=== PATIENT | female | born 1945 | race Caucasian/White ===

== ENCOUNTER 2017-11-04 06:40 | Observation (INO) | payer MEDICARE, OTHER ==
[~2017-11-04 06:40] MED LIST: Sodium Chloride 0.9% 10 ML Syringe FLUSH PRN; Sodium Chloride 0.9% 2.5 ML Syringe FLUSH PRN; ceFAZolin 2 GM in Premix Bag 1 BAG IV ONE
[2017-11-04] MEDS: Lactated Ringers 1,000 ML IV SCH ×2 (07:14→16:16)
[2017-11-04] MEDS ORDERED: Bupivacaine 0.5% 30 ML SDV ONE (07:26)
[2017-11-04] MEDS ORDERED: Lidocaine 2% 5 ML SDV ONE (07:32)
[2017-11-04] MEDS ORDERED: Propofol 200 MG/20 ML SDV ONE (07:32)
[2017-11-04] MEDS ORDERED: Midazolam 1 MG/ML 2 ML SDV ONE ×2 (07:32→07:37)
[2017-11-04] MEDS ORDERED: fentaNYL 100 MCG/2 ML SDV ONE (07:32)
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
[2017-11-04] MEDS ORDERED: Succinylcholine/Normal Saline 200 MG/10 ML Syringe ONE (07:35)
[2017-11-04] MEDS ORDERED: Ketorolac 30 MG/ML SDV ONE (07:35)
[2017-11-04] MEDS ORDERED: Ondansetron 4 MG/2 ML SDV ONE (07:35)
[2017-11-04] MEDS ORDERED: Rocuronium 10 MG/ML 10 ML Syringe ONE (07:35)
[2017-11-04] MEDS ORDERED: HYDROmorphone 2 MG/ML SDV ONE (07:38)
[2017-11-04] MEDS ORDERED: fentaNYL 100 MCG/2 ML SDV IVPUSH PRN (08:36)
[2017-11-04] MEDS ORDERED: HYDROmorphone 2 MG/ML Syringe IVPUSH ONE (08:36)
[2017-11-04] MEDS ORDERED: Dexamethasone 4 MG/ML 5 ML MDV ONE (09:03)
[2017-11-04] MEDS ORDERED: Sugammadex Sodium 200 MG/2 ML VIAL ONE (09:17)
[2017-11-04] MEDS ORDERED: oxyCODONE 5 MG Tab PO PRN (09:50)
--- NOTE | 2017-11-04 09:58 | PCM.OPNOTE ---
- General Post-Op/Procedure Note Date of Surgery/Procedure: 11/04/17 Operative Procedure(s): Laparoscopic cholecystectomy Findings: Mildly inflamed gallbladder Pre Op Diagnosis: Symptomatic cholelithiasis Post-Op Diagnosis: same Anesthesia Technique: MAC Primary Surgeon: Marilyn Vee Fluid Replacement, Intraop: 1,800 Output, Urine Amount: 125 EBL in mLs: 20 Condition: Good Free Text/Narrative:: Intake & Output 11/03/17 11/04/17 11/04/17 22:59 06:59 14:59 Output Total 125 Balance -125
[2017-11-04] MEDS ORDERED: ePHEDrine 50 MG/ML SDV ONE (10:35)
[2017-11-04] MEDS ORDERED: Phenylephrine/Normal Saline 100 MCG/ML 10 ML Syringe ONE (10:39)
--- NOTE | 2017-11-04 11:34 | PCM.POSTAN ---
POST ANESTHESIA ASSESSMENT - MENTAL STATUS Mental Status: Alert, Oriented - RESPIRATORY Respiratory Status: Respiratory Rate WNL, Airway Patent, O2 Saturation Stable - CARDIOVASCULAR CV Status: Pulse Rate WNL, Blood Pressure Stable - GASTROINTESTINAL GI Status: No Symptoms - POST OP HYDRATION Hydration Status: Adequate & Stable
[2017-11-04] MEDS ORDERED: HYDROmorphone 2 MG/ML Syringe IVPUSH PRN (11:49)
[2017-11-04] MEDS ORDERED: Scopolamine 1.5 MG Transdermal Patch TRDERM PRN (11:49)
[2017-11-04] MEDS ORDERED: Ondansetron 4 MG/2 ML SDV IVPUSH PRN (11:49)
[2017-11-04] MEDS ORDERED: Promethazine 25 MG/ML SDV IM PRN (11:50)
[2017-11-04] MEDS: HYDROmorphone 1 MG/ML Syringe IVPUSH PRN ×2 (12:38→16:33)
[2017-11-04] MEDS ORDERED: Metoclopramide 10 MG/2 ML SDV IV PRN (13:00)
[2017-11-04] MEDS ORDERED: diphenhydrAMINE 50 MG/ML SDV IVPUSH PRN (13:00)
[2017-11-04] MEDS ORDERED: HYDROmorphone 1 MG/ML Syringe IVPUSH PRN (13:00)
--- NOTE | 2017-11-04 13:00 | PCM.SN ---
- Free Text/Narrative Note: Patient is vomiting and having pain. When she gets pain medicine she becomes extremely lethargic. When she wakes up she then has nausea and subsequent vomiting. Will keep her NPO other than ice chips and sips of meds. Will continue IV fluids. Will write for anti-emetics and pain medications.
[2017-11-04] MEDS: Pantoprazole 40 MG Vial IVPUSH SCH (16:37)
--- NOTE | 2017-11-04 17:16 | PCM.SURGPN ---
- General Info Date of Service: 11/04/17 Date of Surgery/Procedure: 11/04/17 POD#: 0 Post-Op Diagnosis: Symptomatic cholelithiasis Functional Status: Reports: Pain Controlled, Other (Patient very weak from nausea and vomiting today. Pain appears to be controlled. She wakes and answers a few questions before falling back asleep. ) - Review of Systems General: Reports: Weakness, Fatigue Pulmonary: Reports: No Symptoms Cardiovascular: Reports: No Symptoms Gastrointestinal: Reports: Nausea, Vomiting - Patient Data Vitals - Most Recent: Last Vital Signs Temp 36.4 C 11/04/17 11:13 Pulse 84 11/04/17 15:15 Resp 16 11/04/17 15:15 BP 144/66 H 11/04/17 15:15 Pulse Ox 97 11/04/17 15:15 Weight - Most Recent: 48.534 kg I&O - Last 24 Hours: Intake & Output 11/04/17 11/04/17 11/04/17 06:59 14:59 22:59 Intake Total 3700 Output Total 250 Balance 3450 Med Orders - Current: Current Medications Diphenhydramine HCl (Benadryl) 25 mg IVPUSH Q4H PRN PRN Reason: Itching Fentanyl (Sublimaze) 50 mcg IVPUSH Q5M PRN PRN Reason: Pain (severe 7-10) Stop: 11/05/17 08:37 Hydromorphone HCl (Dilaudid) 0.5 mg IVPUSH Q2H PRN PRN Reason: Abdominal Pain Last Admin: 11/04/17 16:33 Dose: 0.5 mg Hydromorphone HCl (Dilaudid) 0.2 mg IVPUSH Q1H PRN PRN Reason: Pain (severe 7-10) Potassium Chloride/Dextrose/Sod Cl (D5 1/2 Ns W/ 20 Meq/L Kcl) 1,000 mls @ 100 mls/hr IV ASDIRECTED EVELIA Metoclopramide HCl (Reglan) 5 mg IV Q6H PRN PRN Reason: Nausea Last Admin: 11/04/17 15:01 Dose: 5 mg Ondansetron HCl (Zofran) 8 mg IVPUSH Q8H PRN PRN Reason: Nausea/Vomiting Last Admin: 11/04/17 12:20 Dose: 8 mg Oxycodone HCl (Oxycodone) 5 mg PO Q4H PRN PRN Reason: Pain Pantoprazole Sodium (Protonix Iv) 40 mg IVPUSH DAILY [facility] Last Admin: 11/04/17 16:37 Dose: 40 mg Promethazine HCl (Phenergan) 25 mg IM Q6H PRN PRN Reason: Nausea Scopolamine (Transderm-Scop) 1.5 mg TRDERM Q72H PRN PRN Reason: Nausea Last Admin: 11/04/17 12:19 Dose: 1.5 mg Sodium Chloride (Saline Flush) 10 ml FLUSH ASDIRECTED PRN PRN Reason: Keep Vein Open Sodium Chloride (Saline Flush) 2.5 ml FLUSH ASDIRECTED PRN PRN Reason: Keep Vein Open Discontinued Medications Bupivacaine HCl (Marcaine 0.5%) Confirm Administered Dose 30 ml .ROUTE .STK-MED ONE Stop: 11/04/17 07:27 Dexamethasone (Dexamethasone) Confirm Administered Dose 20 mg .ROUTE .STK-MED ONE Stop: 11/04/17 09:04 Ephedrine Sulfate (Ephedrine Sulfate) Confirm Administered Dose 50 mg .ROUTE .STK-MED ONE Stop: 11/04/17 10:36 Fentanyl (Sublimaze) Confirm Administered Dose 300 mcg .ROUTE .STK-MED ONE Stop: 11/04/17 07:33 Hydromorphone HCl (Dilaudid) Confirm Administered Dose 2 mg .ROUTE .STK-MED ONE Stop: 11/04/17 07:39 Hydromorphone HCl (Dilaudid) 0 mg IVPUSH ONETIME ONE Stop: 11/04/17 08:37 Hydromorphone HCl (Dilaudid) 0.5 mg IVPUSH Q2H PRN PRN Reason: Abdominal Pain Cefazolin Sodium/Dextrose 2 gm (/ Premix) 50 mls @ 100 mls/hr IV ONETIME ONE Stop: 11/01/17 09:45 Lactated Ringer's (Ringers, Lactated) 1,000 mls @ 125 mls/hr IV ASDIRECTED [facility] Last Admin: 11/04/17 16:16 Dose: 125 mls/hr Ketorolac Tromethamine (Toradol) Confirm Administered Dose 30 mg .ROUTE .STK- MED ONE Stop: 11/04/17 07:36 Lidocaine (Xylocaine-Mpf 2%) Confirm Administered Dose 10 ml .ROUTE .STK-MED ONE Stop: 11/04/17 07:33 Midazolam HCl (Versed 1 Mg/Ml) Confirm Administered Dose 2 mg .ROUTE .STK-MED ONE Stop: 11/04/17 07:33 Midazolam HCl (Versed 1 Mg/Ml) Confirm Administered Dose 2 mg .ROUTE .STK-MED ONE Stop: 11/04/17 07:38 Ondansetron HCl (Zofran) Confirm Administered Dose 4 mg .ROUTE .STK-MED ONE Stop: 11/04/17 07:36 Oxycodone HCl (Oxycodone) 10 mg PO Q4H PRN PRN Reason: Pain Phenylephrine HCl (Phenylephrine In Ns 100 Mcg/Ml) Confirm Administered Dose 1 mg .ROUTE .STK-MED ONE Stop: 11/04/17 10:40 Propofol (Diprivan 20 Ml) Confirm Administered Dose 400 mg .ROUTE .STK-MED ONE Stop: 11/04/17 07:33 Rocuronium [place] (Zemuron) Confirm Administered Dose 100 mg .ROUTE .STK-MED ONE Stop: 11/04/17 07:36 Succinylcholine Chloride (Succinylcholine In Ns Pf) Confirm Administered Dose 200 mg .ROUTE .STK-MED ONE Stop: 11/04/17 07:36 - Exam Wound/Incisions: Dressing Dry and Intact General: No Acute Distress, Sedated Lungs: Normal Respiratory Effort Cardiovascular: Regular Rate GI/Abdominal Exam: Soft, Non-Tender, No Distention - Problem List & Annotations (1) Symptomatic cholelithiasis SNOMED Code(s): 593454990 Code(s): K80.20 - CALCULUS OF GALLBLADDER W/O CHOLECYSTITIS W/O OBSTRUCTION Status: Acute Current Visit: Yes (2) Nausea & vomiting SNOMED Code(s): 81617485 Code(s): R11.2 - NAUSEA WITH VOMITING, UNSPECIFIED Status: Acute Current Visit: Yes (3) Weakness generalized SNOMED Code(s): 27239738 Code(s): R53.1 - WEAKNESS Status: Acute Current Visit: Yes - Problem List Review Problem List Initiated/Reviewed/Updated: Yes - My Orders Last 24 Hours: Active Orders 24 hr Category Date Time Status Patient Status [ADT] Routine ADT 11/04/17 13:00 Active Intake and Output [RC] Q4HR Care 11/04/17 13:04 Active Oxygen Therapy [RC] PRN Care 11/04/17 13:00 Active RT Incentive Spirometry [RC] ASDIRECTED Care 11/04/17 13:00 Active Ready for Discharge [RC] PER UNIT ROUTINE Care 11/04/17 09:57 Inactive Up ad Lashawn [RC] ASDIRECTED Care 11/04/17 13:00 Active Vital Signs [RC] PER UNIT ROUTINE Care 11/04/17 13:00 Active Nothing Per Oral Diet [DIET] Diet 11/04/17 Lunch Active BASIC METABOLIC PANEL,BMP [CHEM] Routine Lab 11/04/17 17:00 Ordered CBC W/O DIFF,HEMOGRAM [HEME] AM Lab 11/05/17 05:11 Ordered COMPREHENSIVE METABOLIC PN,CMP [CHEM] AM Lab 11/05/17 05:11 Ordered MAGNESIUM [CHEM] AM Lab 11/05/17 05:11 Ordered MAGNESIUM [CHEM] Routine Lab 11/04/17 17:00 Ordered PHOSPHORUS [CHEM] Routine Lab 11/04/17 17:00 Ordered PHOSPHORUS [CHEM] Routine Lab 11/05/17 05:00 Ordered D5 1/2 NS w/ 20 mEq/L KCl 1,000 ml Med 11/04/17 17:00 Ordered IV ASDIRECTED HYDROmorphone [Dilaudid] Med 11/04/17 13:00 Active 0.2 mg IVPUSH Q1H PRN HYDROmorphone [Dilaudid] Med 11/04/17 12:30 Active 0.5 mg IVPUSH Q2H PRN Metoclopramide [Reglan] Med 11/04/17 13:00 Active 5 mg IV Q6H PRN Ondansetron [Zofran] Med 11/04/17 11:49 Active 8 mg IVPUSH Q8H PRN Pantoprazole [ProTONIX IV] Med 11/04/17 13:00 Active 40 mg IVPUSH DAILY Promethazine [Phenergan] Med 11/04/17 11:50 Active 25 mg IM Q6H PRN Scopolamine [Transderm-Scop] Med 11/04/17 11:49 Active 1.5 mg TRDERM Q72H PRN diphenhydrAMINE [Benadryl] Med 11/04/17 13:00 Active 25 mg IVPUSH Q4H PRN fentaNYL [Sublimaze] Med 11/04/17 08:36 Active 50 mcg IVPUSH Q5M PRN oxyCODONE Med 11/04/17 13:08 Active 5 mg PO Q4H PRN Medication Orders Diphenhydramine HCl (Benadryl) 25 mg IVPUSH Q4H PRN PRN Reason: Itching Fentanyl (Sublimaze) 50 mcg IVPUSH Q5M PRN PRN Reason: Pain (severe 7-10) Stop: 11/05/17 08:37 Hydromorphone HCl (Dilaudid) 0.5 mg IVPUSH Q2H PRN PRN Reason: Abdominal Pain Last Admin: 11/04/17 16:33 Dose: 0.5 mg Admin: 11/04/17 12:38 Dose: 0.5 mg Hydromorphone HCl (Dilaudid) 0.2 mg IVPUSH Q1H PRN PRN Reason: Pain (severe 7-10) Potassium Chloride/Dextrose/Sod Cl (D5 1/2 Ns W/ 20 Meq/L Kcl) 1,000 mls @ 100 mls/hr IV ASDIRECTED EVELIA Metoclopramide HCl (Reglan) 5 mg IV Q6H PRN PRN Reason: Nausea Last Admin: 11/04/17 15:01 Dose: 5 mg Ondansetron HCl (Zofran) 8 mg IVPUSH Q8H PRN PRN Reason: Nausea/Vomiting Last Admin: 11/04/17 12:20 Dose: 8 mg Oxycodone HCl (Oxycodone) 5 mg PO Q4H PRN PRN Reason: Pain Pantoprazole Sodium (Protonix Iv) 40 mg IVPUSH DAILY EVELIA Last Admin: 11/04/17 16:37 Dose: 40 mg Promethazine HCl (Phenergan) 25 mg IM Q6H PRN PRN Reason: Nausea Scopolamine (Transderm-Scop) 1.5 mg TRDERM Q72H PRN PRN Reason: Nausea Last Admin: 11/04/17 12:19 Dose: 1.5 mg Sodium Chloride (Saline Flush) 10 ml FLUSH ASDIRECTED PRN PRN Reason: Keep Vein Open Sodium Chloride (Saline Flush) 2.5 ml FLUSH ASDIRECTED PRN PRN Reason: Keep Vein Open - Plan Plan (Free Text/Narrative):: Patient weak from nausea and vomiting most likely due to anesthetic. Case went well with no intra-operative complications. Narcotics also make her very lethargic. -Pain IV dilaudid prn oxycodone. Allergic to tylenol. Received toradol at the end of the case. -Vitals are stable -Anti-emetics (zofran, reglan, promethazine) as needed for nausea and vomiting. Has scopalamine patch -No UOP since surgery will have RN perform a bladder scan -IVF switched to D5 1/2 NS with KCl given nausea and vomiting. Will check BMP, Mag, Phos and replace as necessary. -Dispo: Home once pain controlled and tolerating a regular diet.
[2017-11-04] MEDS: D5 1/2 NS w/ 20 mEq/L KCl 1,000 ML IV SCH (17:30)
[2017-11-04 18:30] LABS: CHLORIDE,CL 106 mmol/L (98-110); SODIUM,NA 138 mmol/L (136-146)
[2017-11-04] MEDS ORDERED: Magnesium Sulfate/Water 4 GM in Premix Bag 1 BAG IV ONE (19:09)
[2017-11-04] MEDS: Metoclopramide 10 MG/2 ML SDV IVPUSH SCH (20:44)
[2017-11-04] MEDS: oxyCODONE 5 MG Tab PO PRN (20:44)
--- NOTE | 2017-11-04 20:48 | OR ---
SURGEON: ROSAMARIA PARISH MD DATE OF PROCEDURE: 11/04/2017 PREOPERATIVE DIAGNOSIS: Symptomatic cholelithiasis. POSTOPERATIVE DIAGNOSIS: Symptomatic cholelithiasis. PROCEDURE PERFORMED: Laparoscopic cholecystectomy. ANESTHESIA: General endotracheal anesthesia. FLUID: 1800 mL of crystalloid. URINE OUTPUT: 175 mL. ESTIMATED BLOOD LOSS: 20 mL. FINDINGS: Mildly inflamed gallbladder. COMPLICATIONS: None. INDICATIONS: The patient is a 72-year-old female with complaints of chronic postprandial epigastric and right upper quadrant pain. She underwent an extensive workup that revealed cholelithiasis. Her , [id number], and I had long conversations regarding the possible treatment options. The patient decided that she wanted to undergo a laparoscopic possible open cholecystectomy. I explained the procedure as well as expected perioperative course. I explained to her on many occasions that this may not take care of all of her symptoms, but may resolve her postprandial pain. We discussed the risks including bleeding, infection, or damage to surrounding structures. The patient verbalized understanding and wishes to proceed. PROCEDURE IN DETAIL: The patient was brought into the OR and placed on the OR table in supine position. A time-out was completed verifying the patient's name, age, date of , allergies, and procedure to be performed. General endotracheal anesthetic was induced. The left arm was tucked to the patient's side and a Chase catheter was placed. The abdomen was prepped and draped in usual standard fashion. The patient had a previous scar along her lower abdomen. I anesthetized the superior aspect of this lower midline scar with 0.5% Marcaine plain. A 15 blade was used to make a 2 cm incision along this area. Cautery was used to dissect down the subcutaneous fat. S retractors were used to dissect down to the level of the fascia. Upon reaching the level of the fascia, I noticed a nonabsorbable sutures. The fascia was cleared off using a Metzenbaum scissors. I grasped the fascia with Kochers and incised it sharply with the curved Banks scissors. A 12 mm Pearl trocar was then placed through this defect in the fascia and the abdomen insufflated to a pressure of 13 mmHg. The area underneath my initial trocar site was inspected and there was no evidence of damage to surrounding structures. 5 mm trocars were placed under direct visualization in the following locations; one in the epigastric area, one along the right flank, and one along the right subcostal margin along the midclavicular line. The patient was placed into reverse Trendelenburg position and airplaned slightly to the left. The dome of the gallbladder was grasped with an atraumatic grasper through the right flank port and was elevated above the dome of the gallbladder. The infundibulum was grasped using an atraumatic grasper through the midclavicular port and retracted inferiorly into the right. Using a combination of gentle blunt dissection, using a right angle [place] and cautery I was able to identify the cystic duct and artery. I cleared the proximal 1/3 of the gallbladder off the gallbladder fossa. Once I had obtained my critical view, the cystic duct and artery were doubly clipped and ligated. The gallbladder was taken off the gallbladder fossa with electrocautery. The gallbladder was noted to be mildly inflamed and the gallbladder fossa was slightly oozy with no rere bleeding. The gallbladder was placed in an EndoCatch bag and removed from the abdomen through the infraumbilical port site. The Pearl trocar was put back in place and I reinspected my operative field. Avitene was placed in the gallbladder fossa, given that it appeared slightly oozy. There was no evidence of rere hemorrhage or biliary leakage. The abdomen was irrigated until the irrigant ran clear. The 5 mm trocars were removed under direct visualization. The fascia at the level of the infraumbilical site was closed with interrupted 0 Vicryl sutures. The skin was closed with running 3-0 Vicryl suture in the subcutaneous fat and running 4-0 Monocryl stitch in the subcuticular space. The 5 mm trocar sites were closed with interrupted 4-0 Monocryl. Steri-Strips and sterile dressings were applied. The patient was transferred to the PACU in stable condition. CHRIS CLARK /[id number] ADALBERTO
[2017-11-05] MEDS: Metoclopramide 10 MG/2 ML SDV IVPUSH SCH (02:57)
[2017-11-05] MEDS: oxyCODONE 5 MG Tab PO PRN ×3 (03:09→14:19)
[2017-11-05] MEDS: D5 1/2 NS w/ 20 mEq/L KCl 1,000 ML IV SCH (04:45)
[2017-11-05 04:58] LABS: CHLORIDE,CL 107 mmol/L (98-110); SODIUM,NA 136 mmol/L (136-146)
--- NOTE | 2017-11-05 07:43 | PCM.SURGPN ---
- General Info Date of Service: 11/04/17 Date of Surgery/Procedure: 11/05/17 POD#: 1 Post-Op Diagnosis: Symptomatic cholelithiasis Functional Status: Reports: Other (Patient was reportedly confused when she woke up this morning. When I came in to visit her she was alert and oriented. She wishes to eat and drink something this morning. She had no vomiting overnight. Her vital signs were stable. Urine output was good. Labs this morning all appear normal.) - Review of Systems General: Reports: Weakness Pulmonary: Reports: No Symptoms Cardiovascular: Reports: No Symptoms Gastrointestinal: Reports: No Symptoms - Patient Data Vitals - Most Recent: Last Vital Signs Temp 36.5 C 11/04/17 16:55 Pulse 78 11/04/17 16:55 Resp 18 11/04/17 16:55 BP 128/64 11/04/17 16:55 Pulse Ox 94 L 11/04/17 16:55 Weight - Most Recent: 48.534 kg I&O - Last 24 Hours: Intake & Output 11/04/17 11/05/17 11/05/17 22:59 06:59 14:59 Intake Total 100 Output Total 600 1100 Balance -600 -1000 Lab Results Last 24 Hrs: Laboratory Results - last 24 hr 11/04/17 11/05/17 11/05/17 Range/Units 17:25 04:29 04:29 WBC 6.26 (4.0-11.0) K/uL RBC 3.54 L (4.30-5.90) M/uL Hgb 11.7 L (12.0-16.0) g/dL Hct 34.8 L (36.0-46.0) % MCV 98.3 H (80.0-98.0) fL MCH 33.1 H (27.0-32.0) pg MCHC 33.6 (31.0-37.0) g/dL RDW Std Deviation 46.6 (28.0-62.0) fl RDW Coeff of Jennifer 13 (11.0-15.0) % Plt Count 134 L (150-400) K/uL MPV 9.40 (7.40-12.00) fL Nucleated RBC % 0.0 /100WBC Nucleated RBCs # 0 K/uL Sodium 138 136 (136-146) mmol/L Potassium 4.3 5.1 (3.5-5.1) mmol/L Chloride 106 107 (98-110) mmol/L Carbon Dioxide 23 23 (21-31) mmol/L BUN 13 14 (6.0-23.0) mg/dL Creatinine 0.8 0.8 (0.6-1.5) mg/dL Est Cr Clr Drug Dosing 44.99 44.99 mL/min Estimated GFR (MDRD) > 60.0 > 60.0 ml/min Glucose 178 H 181 H (60-110) mg/dL Calcium 8.5 L 8.1 L (8.8-10.8) mg/dL Phosphorus 3.7 (2.4-4.7) mg/dL Magnesium 1.4 L 2.3 (1.5-2.3) mEq/L Total Bilirubin 0.4 (0.1-1.5) mg/dL AST 29 (5-40) IU/L ALT 19 (8-54) IU/L Alkaline Phosphatase 68 (40-150) Total Protein 4.9 L (6.0-8.0) g/dL Albumin 3.2 L (3.4-4.8) g/dL Globulin 1.7 L (2.0-3.5) g/dL Albumin/Globulin Ratio 1.9 (1.3-2.8) 11/05/17 Range/Units 04:29 WBC (4.0-11.0) K/uL RBC (4.30-5.90) M/uL Hgb (12.0-16.0) g/dL Hct (36.0-46.0) % MCV (80.0-98.0) fL MCH (27.0-32.0) pg MCHC (31.0-37.0) g/dL RDW Std Deviation (28.0-62.0) fl RDW Coeff of Jennifer (11.0-15.0) % Plt Count (150-400) K/uL MPV (7.40-12.00) fL Nucleated RBC % /100WBC Nucleated RBCs # K/uL Sodium (136-146) mmol/L Potassium (3.5-5.1) mmol/L Chloride (98-110) mmol/L Carbon Dioxide (21-31) mmol/L BUN (6.0-23.0) mg/dL Creatinine (0.6-1.5) mg/dL Est Cr Clr Drug Dosing mL/min Estimated GFR (MDRD) ml/min Glucose (60-110) mg/dL Calcium (8.8-10.8) mg/dL Phosphorus 2.8 (2.4-4.7) mg/dL Magnesium (1.5-2.3) mEq/L Total Bilirubin (0.1-1.5) mg/dL AST (5-40) IU/L ALT (8-54) IU/L Alkaline Phosphatase (40-150) Total Protein (6.0-8.0) g/dL Albumin (3.4-4.8) g/dL Globulin (2.0-3.5) g/dL Albumin/Globulin Ratio (1.3-2.8) Med Orders - Current: Current Medications Diphenhydramine HCl (Benadryl) 25 mg IVPUSH Q4H PRN PRN Reason: Itching Fentanyl (Sublimaze) 50 mcg IVPUSH Q5M PRN PRN Reason: Pain (severe 7-10) Stop: 11/05/17 08:37 Hydromorphone HCl (Dilaudid) 0.5 mg IVPUSH Q2H PRN PRN Reason: Abdominal Pain Last Admin: 11/04/17 16:33 Dose: 0.5 mg Hydromorphone HCl (Dilaudid) 0.2 mg IVPUSH Q1H PRN PRN Reason: Pain (severe 7-10) Potassium Chloride/Dextrose/Sod Cl (D5 1/2 Ns W/ 20 Meq/L Kcl) 1,000 mls @ 100 mls/hr IV ASDIRECTED [facility] Last Admin: 11/05/17 04:45 Dose: 100 mls/hr Metoclopramide HCl (Reglan) 5 mg IVPUSH Q6H [facility] Last Admin: 11/05/17 02:57 Dose: 5 mg Ondansetron HCl (Zofran) 8 mg IVPUSH Q8H PRN PRN Reason: Nausea/Vomiting Last Admin: 11/04/17 12:20 Dose: 8 mg Oxycodone HCl (Oxycodone) 5 mg PO Q4H PRN PRN Reason: Pain Last Admin: 11/05/17 03:09 Dose: 5 mg Pantoprazole Sodium (Protonix Iv) 40 mg IVPUSH DAILY [facility] Last Admin: 11/04/17 16:37 Dose: 40 mg Promethazine HCl (Phenergan) 25 mg IM Q6H PRN PRN Reason: Nausea Last Admin: 11/04/17 18:25 Dose: 25 mg Scopolamine (Transderm-Scop) 1.5 mg TRDERM Q72H PRN PRN Reason: Nausea Last Admin: 11/04/17 12:19 Dose: 1.5 mg Sodium Chloride (Saline Flush) 10 ml FLUSH ASDIRECTED PRN PRN Reason: Keep Vein Open Sodium Chloride (Saline Flush) 2.5 ml FLUSH ASDIRECTED PRN PRN Reason: Keep Vein Open Discontinued Medications Bupivacaine HCl (Marcaine 0.5%) Confirm Administered Dose 30 ml .ROUTE .STK-MED ONE Stop: 11/04/17 07:27 Dexamethasone (Dexamethasone) Confirm Administered Dose 20 mg .ROUTE .STK-MED ONE Stop: 11/04/17 09:04 Ephedrine Sulfate (Ephedrine Sulfate) Confirm Administered Dose 50 mg .ROUTE .STK-MED ONE Stop: 11/04/17 10:36 Fentanyl (Sublimaze) Confirm Administered Dose 300 mcg .ROUTE .STK-MED ONE Stop: 11/04/17 07:33 Hydromorphone HCl (Dilaudid) Confirm Administered Dose 2 mg .ROUTE .STK-MED ONE Stop: 11/04/17 07:39 Hydromorphone HCl (Dilaudid) 0 mg IVPUSH ONETIME ONE Stop: 11/04/17 08:37 Last Admin: 11/04/17 17:29 Dose: Not Given Hydromorphone HCl (Dilaudid) 0.5 mg IVPUSH Q2H PRN PRN Reason: Abdominal Pain Cefazolin Sodium/Dextrose 2 gm (/ Premix) 50 mls @ 100 mls/hr IV ONETIME ONE Stop: 11/01/17 09:45 Lactated Ringer's (Ringers, Lactated) 1,000 mls @ 125 mls/hr IV ASDIRECTED [facility] Last Admin: 11/04/17 16:16 Dose: 125 mls/hr Magnesium Sulfate 4 gm/ Premix 100 mls @ 50 mls/hr IV ONETIME ONE Stop: 11/04/17 21:08 Last Admin: 11/04/17 19:46 Dose: 50 mls/hr Ketorolac Tromethamine (Toradol) Confirm Administered Dose 30 mg .ROUTE .STK- MED ONE Stop: 11/04/17 07:36 Lidocaine (Xylocaine-Mpf 2%) Confirm Administered Dose 10 ml .ROUTE .STK-MED ONE Stop: 11/04/17 07:33 Metoclopramide HCl (Reglan) 5 mg IV Q6H PRN PRN Reason: Nausea Last Admin: 11/04/17 15:01 Dose: 5 mg Midazolam HCl (Versed 1 Mg/Ml) Confirm Administered Dose 2 mg .ROUTE .STK-MED ONE Stop: 11/04/17 07:33 Midazolam HCl (Versed 1 Mg/Ml) Confirm Administered Dose 2 mg .ROUTE .STK-MED ONE Stop: 11/04/17 07:38 Ondansetron HCl (Zofran) Confirm Administered Dose 4 mg .ROUTE .STK-MED ONE Stop: 11/04/17 07:36 Oxycodone HCl (Oxycodone) 10 mg PO Q4H PRN PRN Reason: Pain Phenylephrine HCl (Phenylephrine In Ns 100 Mcg/Ml) Confirm Administered Dose 1 mg .ROUTE .STK-MED ONE Stop: 11/04/17 10:40 Propofol (Diprivan 20 Ml) Confirm Administered Dose 400 mg .ROUTE .STK-MED ONE Stop: 11/04/17 07:33 Rocuronium [place] (Zemuron) Confirm Administered Dose 100 mg .ROUTE .STK-MED ONE Stop: 11/04/17 07:36 Succinylcholine Chloride (Succinylcholine In Ns Pf) Confirm Administered Dose 200 mg .ROUTE .STK-MED ONE Stop: 11/04/17 07:36 - Exam Wound/Incisions: Dressing Dry and Intact, Drainage (Minimal) General: Alert, Oriented, Cooperative, Other (Depressed appearing) HEENT: Pupils Equal, Pupils Reactive Lungs: Normal Respiratory Effort Cardiovascular: Regular Rate GI/Abdominal Exam: Soft, Non-Tender, No Distention Extremities: Normal Inspection Skin: Warm, Dry, Intact Neurological: No New Focal Deficit Psy/Mental Status: Alert, Anxious, Depressed - Problem List & Annotations (1) Symptomatic cholelithiasis SNOMED Code(s): 261694562 Code(s): K80.20 - CALCULUS OF GALLBLADDER W/O CHOLECYSTITIS W/O OBSTRUCTION Status: Acute Current Visit: Yes (2) Nausea & vomiting SNOMED Code(s): 36765048 Code(s): R11.2 - NAUSEA WITH VOMITING, UNSPECIFIED Status: Acute Current Visit: Yes (3) Weakness generalized SNOMED Code(s): 43669972 Code(s): R53.1 - WEAKNESS Status: Acute Current Visit: Yes - Problem List Review Problem List Initiated/Reviewed/Updated: Yes - My Orders Last 24 Hours: Active Orders 24 hr Category Date Time Status Patient Status [ADT] Routine ADT 11/04/17 13:00 Active Communication Order [RC] DAILY Care 11/04/17 17:22 Active Intake and Output [RC] Q4HR Care 11/04/17 13:04 Active Oxygen Therapy [RC] PRN Care 11/04/17 13:00 Active RT Incentive Spirometry [RC] ASDIRECTED Care 11/04/17 13:00 Active Ready for Discharge [RC] PER UNIT ROUTINE Care 11/04/17 09:57 Inactive Up ad Lashawn [RC] ASDIRECTED Care 11/04/17 13:00 Active Vital Signs [RC] PER UNIT ROUTINE Care 11/04/17 13:00 Active Clear Liquid Diet [DIET] Diet 11/05/17 Lunch Active Nothing Per Oral Diet [DIET] Diet 11/04/17 Lunch Active D5 1/2 NS w/ 20 mEq/L KCl 1,000 ml Med 11/04/17 17:00 Active IV ASDIRECTED HYDROmorphone [Dilaudid] Med 11/04/17 13:00 Active 0.2 mg IVPUSH Q1H PRN HYDROmorphone [Dilaudid] Med 11/04/17 12:30 Active 0.5 mg IVPUSH Q2H PRN Metoclopramide [Reglan] Med 11/04/17 21:00 Active 5 mg IVPUSH Q6H Ondansetron [Zofran] Med 11/04/17 11:49 Active 8 mg IVPUSH Q8H PRN Pantoprazole [ProTONIX IV] Med 11/04/17 13:00 Active 40 mg IVPUSH DAILY Promethazine [Phenergan] Med 11/04/17 11:50 Active 25 mg IM Q6H PRN Scopolamine [Transderm-Scop] Med 11/04/17 11:49 Active 1.5 mg TRDERM Q72H PRN diphenhydrAMINE [Benadryl] Med 11/04/17 13:00 Active 25 mg IVPUSH Q4H PRN fentaNYL [Sublimaze] Med 11/04/17 08:36 Active 50 mcg IVPUSH Q5M PRN oxyCODONE Med 11/04/17 13:08 Active 5 mg PO Q4H PRN Medication Orders Diphenhydramine HCl (Benadryl) 25 mg IVPUSH Q4H PRN PRN Reason: Itching Fentanyl (Sublimaze) 50 mcg IVPUSH Q5M PRN PRN Reason: Pain (severe 7-10) Stop: 11/05/17 08:37 Hydromorphone HCl (Dilaudid) 0.5 mg IVPUSH Q2H PRN PRN Reason: Abdominal Pain Last Admin: 11/04/17 16:33 Dose: 0.5 mg Admin: 11/04/17 12:38 Dose: 0.5 mg Hydromorphone HCl (Dilaudid) 0.2 mg IVPUSH Q1H PRN PRN Reason: Pain (severe 7-10) Potassium Chloride/Dextrose/Sod Cl (D5 1/2 Ns W/ 20 Meq/L Kcl) 1,000 mls @ 100 mls/hr IV ASDIRECTED [facility] Last Admin: 11/05/17 04:45 Dose: 100 mls/hr Infusion: 11/05/17 03:30 Dose: 100 mls/hr Admin: 11/04/17 17:30 Dose: 100 mls/hr Metoclopramide HCl (Reglan) 5 mg IVPUSH Q6H [facility] Last Admin: 11/05/17 02:57 Dose: 5 mg Admin: 11/04/17 20:44 Dose: 5 mg Ondansetron HCl (Zofran) 8 mg IVPUSH Q8H PRN PRN Reason: Nausea/Vomiting Last Admin: 11/04/17 12:20 Dose: 8 mg Oxycodone HCl (Oxycodone) 5 mg PO Q4H PRN PRN Reason: Pain Last Admin: 11/05/17 03:09 Dose: 5 mg Admin: 11/04/17 20:44 Dose: 5 mg Pantoprazole Sodium (Protonix Iv) 40 mg IVPUSH DAILY [facility] Last Admin: 11/04/17 16:37 Dose: 40 mg Promethazine HCl (Phenergan) 25 mg IM Q6H PRN PRN Reason: Nausea Last Admin: 11/04/17 18:25 Dose: 25 mg Scopolamine (Transderm-Scop) 1.5 mg TRDERM Q72H PRN PRN Reason: Nausea Last Admin: 11/04/17 12:19 Dose: 1.5 mg Sodium Chloride (Saline Flush) 10 ml FLUSH ASDIRECTED PRN PRN Reason: Keep Vein Open Sodium Chloride (Saline Flush) 2.5 ml FLUSH ASDIRECTED PRN PRN Reason: Keep Vein Open - Plan Plan (Free Text/Narrative):: Patient appears much more comfortable this morning. She is depressed and anxious at baseline and seems to be back to her normal self. Explained to the patient that I'll advance her diet today and if she can tolerate liquids and keep down small amount of food with good pain control she can go home today. -Discontinue IV fluids -Advance diet to clears this morning. If tolerated will advance to regular for lunch. -Discontinue IV Protonix. Will switch to oral omeprazole. -By mouth oxycodone 5 mg every 4 hours as needed for pain.
[2017-11-05] MEDS ORDERED: Metoclopramide 10 MG/2 ML SDV IVPUSH PRN (07:44)
[2017-11-05] MEDS: Pantoprazole 40 MG Vial IVPUSH SCH (08:04)
[2017-11-05 12:39] VITALS: BP 113/52
--- NOTE | 2017-11-05 12:58 | PCM48HPAN ---
Post Anesthesia Note - EVALUATION WITHIN 48HRS OF ANESTHETIC Vital Signs in Normal Range: Yes Patient Participated in Evaluation: Yes Respiratory Function Stable: Yes Airway Patent: Yes Cardiovascular Function Stable: Yes Hydration Status Stable: Yes Pain Control Satisfactory: Yes Nausea and Vomiting Control Satisfactory: Yes Mental Status Recovered: Yes
--- NOTE | 2017-11-05 13:48 | PCM.DCSUM1 ---
Discharge Summary - Hospital Course Free Text/Narrative:: Patient is 72-year-old female who underwent laparoscopic cholecystectomy for symptomatically cholelithiasis. The case went well with no intraoperative complications. Postoperatively the patient had intractable nausea vomiting of bilious fluid and weakness. She was given narcotics but these sedated her too much. She was admitted to the hospital and given IV fluids kept nothing by mouth and given several antiemetics including a scopolamine patch, Zofran, schedule Reglan, and promethazine. She was hypomagnesemic and given IV replacement magnesium. She was also given IV Protonix any inflammation of the stomach. This morning the patient had more energy and appetite. She did not vomit overnight and all her vital signs were stable. Her CBC and CMP all within normal limits. Her diet was advanced to regular and her IV fluids stopped. This morning the patient has not required any medications for nausea and her pain is well-managed with by mouth oxycodone. She is able to ambulate without assistance. She was cleared for discharge. - Discharge Data Discharge Date: 11/05/17 Discharge Disposition: Home, Self-Care 01 Condition: Good - Discharge Diagnosis/Problem(s) (1) Symptomatic cholelithiasis SNOMED Code(s): 873320198 ICD Code: K80.20 - CALCULUS OF GALLBLADDER W/O CHOLECYSTITIS W/O OBSTRUCTION Status: Acute Current Visit: Yes (2) Nausea & vomiting SNOMED Code(s): 61246558 ICD Code: R11.2 - NAUSEA WITH VOMITING, UNSPECIFIED Status: Acute Current Visit: Yes (3) Weakness generalized SNOMED Code(s): 04713196 ICD Code: R53.1 - WEAKNESS Status: Acute Current Visit: Yes - Patient Summary/Data Operative Procedure(s) Performed: Laparoscopic cholecystectomy - Patient Instructions Diet: Regular Diet as Tolerated Activity: No Lifting Over 20 Pounds (for one month ), Rest and Relax Today Driving: Do Not Drive Showering/Bathing: No Showering (for 2 days after surgery), No Tub Bathing/ Swimming (for two weeks after surgery ) Wound/Incision Care: Keep Operative Site/Wound Site Clean and Dry Notify Provider of: Fever, Increased Pain, Swelling and Redness, Drainage, Nausea and/or Vomiting Other/Special Instructions: No ibuprofen for pain until wednesday - Discharge Plan Prescriptions/Med Rec: oxyCODONE 5 mg PO Q4HR PRN #20 tablet PRN Reason: Pain Ondansetron [Zofran ODT] 4 mg PO Q6H PRN #30 tab.dis PRN Reason: Nausea Scopolamine [Transderm-Scop] 1.5 mg TRDERM Q72H PRN #10 patch PRN Reason: Nausea Home Medications: Home Meds Ondansetron [Zofran ODT] 4 mg PO Q6H PRN #30 tab.dis 11/05/17 [Rx] Scopolamine [Transderm-Scop] 1.5 mg TRDERM Q72H PRN #10 patch 11/05/17 [Rx] oxyCODONE 5 mg PO Q4HR PRN #20 tablet 11/05/17 [Rx] Patient Handouts: Laparoscopic Cholecystectomy, Care After, [id number] Referrals: Marilyn Vee MD [Physician] - 12/06/17 4:00 pm - General Info Functional Status: Reports: Pain Controlled, Tolerating Diet, Ambulating, Urinating - Review of Systems General: Reports: No Symptoms Pulmonary: Reports: No Symptoms Cardiovascular: Reports: No Symptoms Gastrointestinal: Reports: No Symptoms - Patient Data Vitals - Most Recent: Last Vital Signs Temp 37.2 C 11/05/17 12:00 Pulse 74 11/05/17 12:00 Resp 18 11/05/17 12:00 BP 113/52 L 11/05/17 12:00 Pulse Ox 92 L 11/05/17 12:00 Weight - Most Recent: 48.534 kg I&O - Last 24 hours: Intake & Output 11/04/17 11/05/17 11/05/17 22:59 06:59 14:59 Intake Total 100 Output Total 600 1100 0 Balance -600 -1000 0 Lab Results - Last 24 hrs: Laboratory Results - last 24 hr 11/04/17 11/05/17 11/05/17 Range/Units 17:25 04:29 04:29 WBC 6.26 (4.0-11.0) K/uL RBC 3.54 L (4.30-5.90) M/uL Hgb 11.7 L (12.0-16.0) g/dL Hct 34.8 L (36.0-46.0) % MCV 98.3 H (80.0-98.0) fL MCH 33.1 H (27.0-32.0) pg MCHC 33.6 (31.0-37.0) g/dL RDW Std Deviation 46.6 (28.0-62.0) fl RDW Coeff of Jennifer 13 (11.0-15.0) % Plt Count 134 L (150-400) K/uL MPV 9.40 (7.40-12.00) fL Nucleated RBC % 0.0 /100WBC Nucleated RBCs # 0 K/uL Sodium 138 136 (136-146) mmol/L Potassium 4.3 5.1 (3.5-5.1) mmol/L Chloride 106 107 (98-110) mmol/L Carbon Dioxide 23 23 (21-31) mmol/L BUN 13 14 (6.0-23.0) mg/dL Creatinine 0.8 0.8 (0.6-1.5) mg/dL Est Cr Clr Drug Dosing 44.99 44.99 mL/min Estimated GFR (MDRD) > 60.0 > 60.0 ml/min Glucose 178 H 181 H (60-110) mg/dL Calcium 8.5 L 8.1 L (8.8-10.8) mg/dL Phosphorus 3.7 (2.4-4.7) mg/dL Magnesium 1.4 L 2.3 (1.5-2.3) mEq/L Total Bilirubin 0.4 (0.1-1.5) mg/dL AST 29 (5-40) IU/L ALT 19 (8-54) IU/L Alkaline Phosphatase 68 (40-150) Total Protein 4.9 L (6.0-8.0) g/dL Albumin 3.2 L (3.4-4.8) g/dL Globulin 1.7 L (2.0-3.5) g/dL Albumin/Globulin Ratio 1.9 (1.3-2.8) 11/05/17 Range/Units 04:29 WBC (4.0-11.0) K/uL RBC (4.30-5.90) M/uL Hgb (12.0-16.0) g/dL Hct (36.0-46.0) % MCV (80.0-98.0) fL MCH (27.0-32.0) pg MCHC (31.0-37.0) g/dL RDW Std Deviation (28.0-62.0) fl RDW Coeff of Jennifer (11.0-15.0) % Plt Count (150-400) K/uL MPV (7.40-12.00) fL Nucleated RBC % /100WBC Nucleated RBCs # K/uL Sodium (136-146) mmol/L Potassium (3.5-5.1) mmol/L Chloride (98-110) mmol/L Carbon Dioxide (21-31) mmol/L BUN (6.0-23.0) mg/dL Creatinine (0.6-1.5) mg/dL Est Cr Clr Drug Dosing mL/min Estimated GFR (MDRD) ml/min Glucose (60-110) mg/dL Calcium (8.8-10.8) mg/dL Phosphorus 2.8 (2.4-4.7) mg/dL Magnesium (1.5-2.3) mEq/L Total Bilirubin (0.1-1.5) mg/dL AST (5-40) IU/L ALT (8-54) IU/L Alkaline Phosphatase (40-150) Total Protein (6.0-8.0) g/dL Albumin (3.4-4.8) g/dL Globulin (2.0-3.5) g/dL Albumin/Globulin Ratio (1.3-2.8) Med Orders - Current: Current Medications Diphenhydramine HCl (Benadryl) 25 mg IVPUSH Q4H PRN PRN Reason: Itching Hydromorphone HCl (Dilaudid) 0.2 mg IVPUSH Q1H PRN PRN Reason: Pain (severe 7-10) Last Admin: 11/05/17 10:39 Dose: 0.2 mg Metoclopramide HCl (Reglan) 5 mg IVPUSH Q6H PRN PRN Reason: Nausea/Vomiting Ondansetron HCl (Zofran) 8 mg IVPUSH Q8H PRN PRN Reason: Nausea/Vomiting Last Admin: 11/04/17 12:20 Dose: 8 mg Oxycodone HCl (Oxycodone) 5 mg PO Q4H PRN PRN Reason: Pain Last Admin: 11/05/17 09:01 Dose: 5 mg Promethazine HCl (Phenergan) 25 mg IM Q6H PRN PRN Reason: Nausea Last Admin: 11/04/17 18:25 Dose: 25 mg Scopolamine (Transderm-Scop) 1.5 mg TRDERM Q72H PRN PRN Reason: Nausea Last Admin: 11/04/17 12:19 Dose: 1.5 mg Sodium Chloride (Saline Flush) 10 ml FLUSH ASDIRECTED PRN PRN Reason: Keep Vein Open Sodium Chloride (Saline Flush) 2.5 ml FLUSH ASDIRECTED PRN PRN Reason: Keep Vein Open Discontinued Medications Bupivacaine HCl (Marcaine 0.5%) Confirm Administered Dose 30 ml .ROUTE .STK-MED ONE Stop: 11/04/17 07:27 Dexamethasone (Dexamethasone) Confirm Administered Dose 20 mg .ROUTE .STK-MED ONE Stop: 11/04/17 09:04 Ephedrine Sulfate (Ephedrine Sulfate) Confirm Administered Dose 50 mg .ROUTE .STK-MED ONE Stop: 11/04/17 10:36 Fentanyl (Sublimaze) Confirm Administered Dose 300 mcg .ROUTE .STK-MED ONE Stop: 11/04/17 07:33 Fentanyl (Sublimaze) 50 mcg IVPUSH Q5M PRN PRN Reason: Pain (severe 7-10) Stop: 11/05/17 08:37 Hydromorphone HCl (Dilaudid) Confirm Administered Dose 2 mg .ROUTE .STK-MED ONE Stop: 11/04/17 07:39 Hydromorphone HCl (Dilaudid) 0 mg IVPUSH ONETIME ONE Stop: 11/04/17 08:37 Last Admin: 11/04/17 17:29 Dose: Not Given Hydromorphone HCl (Dilaudid) 0.5 mg IVPUSH Q2H PRN PRN Reason: Abdominal Pain Hydromorphone HCl (Dilaudid) 0.5 mg IVPUSH Q2H PRN PRN Reason: Abdominal Pain Last Admin: 11/04/17 16:33 Dose: 0.5 mg Cefazolin Sodium/Dextrose 2 gm (/ Premix) 50 mls @ 100 mls/hr IV ONETIME ONE Stop: 11/01/17 09:45 Lactated Ringer's (Ringers, Lactated) 1,000 mls @ 125 mls/hr IV ASDIRECTED [facility] Last Admin: 11/04/17 16:16 Dose: 125 mls/hr Potassium Chloride/Dextrose/Sod Cl (D5 1/2 Ns W/ 20 Meq/L Kcl) 1,000 mls @ 100 mls/hr IV ASDIRECTED [facility] Last Admin: 11/05/17 04:45 Dose: 100 mls/hr Magnesium Sulfate 4 gm/ Premix 100 mls @ 50 mls/hr IV ONETIME ONE Stop: 11/04/17 21:08 Last Admin: 11/04/17 19:46 Dose: 50 mls/hr Ketorolac Tromethamine (Toradol) Confirm Administered Dose 30 mg .ROUTE .STK- MED ONE Stop: 11/04/17 07:36 Lidocaine (Xylocaine-Mpf 2%) Confirm Administered Dose 10 ml .ROUTE .STK-MED ONE Stop: 11/04/17 07:33 Metoclopramide HCl (Reglan) 5 mg IV Q6H PRN PRN Reason: Nausea Last Admin: 11/04/17 15:01 Dose: 5 mg Metoclopramide HCl (Reglan) 5 mg IVPUSH Q6H [facility] Last Admin: 11/05/17 02:57 Dose: 5 mg Midazolam HCl (Versed 1 Mg/Ml) Confirm Administered Dose 2 mg .ROUTE .STK-MED ONE Stop: 11/04/17 07:33 Midazolam HCl (Versed 1 Mg/Ml) Confirm Administered Dose 2 mg .ROUTE .STK-MED ONE Stop: 11/04/17 07:38 Ondansetron HCl (Zofran) Confirm Administered Dose 4 mg .ROUTE .STK-MED ONE Stop: 11/04/17 07:36 Oxycodone HCl (Oxycodone) 10 mg PO Q4H PRN PRN Reason: Pain Pantoprazole Sodium (Protonix Iv) 40 mg IVPUSH DAILY [facility] Last Admin: 11/05/17 08:04 Dose: 40 mg Phenylephrine HCl (Phenylephrine In Ns 100 Mcg/Ml) Confirm Administered Dose 1 mg .ROUTE .STK-MED ONE Stop: 11/04/17 10:40 Propofol (Diprivan 20 Ml) Confirm Administered Dose 400 mg .ROUTE .STK-MED ONE Stop: 11/04/17 07:33 Rocuronium [place] (Zemuron) Confirm Administered Dose 100 mg .ROUTE .STK-MED ONE Stop: 11/04/17 07:36 Succinylcholine Chloride (Succinylcholine In Ns Pf) Confirm Administered Dose 200 mg .ROUTE .K-MED ONE Stop: 11/04/17 07:36 - Exam General: Reports: Alert, Oriented, Cooperative HEENT: Reports: Pupils Equal, Pupils Reactive Lungs: Reports: Normal Respiratory Effort Cardiovascular: Reports: Regular Rate GI/Abdominal Exam: Soft, Non-Tender, No Distention, No Mass *Q Meaningful Use (DIS) - VTE *Q VTE Criteria *Q: - Stroke *Q Stroke Criteria *Q: - AMI *Q AMI Criteria *Q:
== END 2017-11-05 14:55 | disposition home or self-care (01) ==
LOC: MW.SDS 06:40 → MW.MS 13:00
PROVIDERS: ADMIT Surgery; ATTEND Surgery
DX: K80.10 Calculus of gallbladder with chronic cholecystitis without obstruction (principal); R11.2 Nausea with vomiting, unspecified; R53.1 Weakness; F41.9 Anxiety disorder, unspecified; E53.8 Deficiency of other specified B group vitamins; F32.9 Major depressive disorder, single episode, unspecified; E73.9 Lactose intolerance, unspecified; R41.3 Other amnesia; M81.0 Age-related osteoporosis without current pathological fracture; M06.9 Rheumatoid arthritis, unspecified; M54.30 Sciatica, unspecified side; N39.41 Urge incontinence; G47.30 Sleep apnea, unspecified; Z88.5 Allergy status to narcotic agent; Z88.8 Allergy status to other drugs, medicaments and biological substances
CPT/HCPCS: 36415; 47562; 80048; 80053; 83735; 84100; 85027; 88304; 96365; 96375; 96376; A9270; C9113; C9399; G0378; J1100; J1170; J1885; J2250; J2405; J2550; J2765; J3010; J3475; J3480; J7120; 00790; J2704

== ENCOUNTER 2017-11-07 16:25 | Emergency (ER) | payer MEDICARE, OTHER ==
[2017-11-07] MEDS ORDERED: Ondansetron 4 MG/2 ML SDV IVPUSH ONE (16:32)
[2017-11-07] MEDS ORDERED: Sodium Chloride 0.9% 1,000 ML IV ONE (16:32)
[2017-11-07] MEDS ORDERED: Ketorolac 30 MG/ML SDV IVPUSH ONE (16:32)
--- NOTE | 2017-11-07 16:32 | EDM.PDOC ---
ED HPI GENERAL MEDICAL PROBLEM - General Chief Complaint: Abdominal Pain Stated Complaint: AMB Time Seen by Provider: 11/07/17 16:26 Source of Information: Reports: Patient History Limitations: Reports: No Limitations - History of Present Illness INITIAL COMMENTS - FREE TEXT/NARRATIVE: HISTORY AND PHYSICAL: History of present illness: Patient is a 72-year-old female who presents to the emergency room with complaints of chest and abdominal pain for the last 30 minutes. She recently had a cholecystectomy on 11/04/[address] Vee. States her recovery has been going well has had minimal to moderate pain. Today she was talking with her family members when she started to have pain to the upper chest going all the way to the low abdomen. Intermittent nausea. Denies any headache, change in vision, diaphoresis, shortness of breath, vomiting or diarrhea. Does not recall her last bowel movement, does say she has chronic constipation for the past 2 years. Review of systems: As per history of present illness and below otherwise all systems reviewed and negative. Past medical history: As per history of present illness and as reviewed below otherwise noncontributory. Surgical history: As per history of present illness and as reviewed below otherwise noncontributory. Social history: No reported history of drug or alcohol abuse. Family history: As per history of present illness and as reviewed below otherwise noncontributory. Physical exam: General: Nontoxic appearing 72-year-old female. Alert and oriented. Appears in no acute distress. HEENT: Atraumatic, normocephalic, pupils reactive, negative for conjunctival pallor or scleral icterus, mucous membranes moist, throat clear, neck supple, nontender, trachea midline. Lungs: Clear to auscultation, breath sounds equal bilaterally, chest nontender. Heart: S1S2, regular rate and rhythm no overt murmurs Abdomen: Soft, nondistended, diffuse tenderness in all 4 quadrants. Post surgical stab sites noted and appeared to be intact without sign of infection ( dressings intact). Negative for masses or hepatosplenomegaly. Negative for costovertebral tenderness. Pelvis: Stable nontender. Genitourinary: Deferred. Rectal: Deferred. Extremities: Atraumatic, negative for cords or calf pain. Neurovascular unremarkable. Neuro: Awake, alert, oriented. Cranial nerves II through XII unremarkable. Cerebellum unremarkable. Motor and sensory unremarkable throughout. Exam nonfocal. She was up with assist 1 to use the bedside commode. She was steady on her feet. Vital signs remained stable. CBC, CMP, troponin are within normal limits. The urinalysis shows a UTI, a culture has been added. CT of the abdomen shows mild free air which is likely postoperative. No significant findings which would indicate why she is having the abdominal pain. Upon telling the patient and son these results the patient does become tearful and states "I don't want to be at home alone". It is made clear to me that recently her has been placed in a halfway and she has been having a hard time with being in her home alone. She does have the son and [id number] who frequently visits the house and check on her, but she is sitting there alone at night. We'll prescribe Macrobid 100 mg twice a day 5. Diagnostics: CBC, CMP, troponin, EKG, 2 view chest x-ray, UA, UC, CT abdomen and pelvis Therapeutics: IV fluid, Zofran Impression: #1 abdominal pain #2 post surgical pain #3 uti Plan: 1. Please take the antibiotic as prescribed. A urine culture has been added. 2. Please take your prescribed pain medication as directed. Increase your fluids to prevent hydration/constipation. 3. Follow up with Dr. Vee for your post surgical evaluation. Return to the ED as needed and as discussed. Definitive disposition and diagnosis as appropriate pending reevaluation and review of above. Onset: Today Duration: Minutes: Location: Reports: Chest, Abdomen Abdomen Pain Score (Numeric/FACES): 4 - Related Data Allergies Allergy/AdvReac Type Severity Reaction Status Date / Time acetaminophen [From Tylenol] Allergy Other Verified 11/07/17 16:33 codeine Allergy visual Verified 11/07/17 16:33 disturbances diazepam [From Valium] Allergy Drowsiness Verified 11/07/17 16:33 Home Meds: Home Meds Ondansetron [Zofran ODT] 4 mg PO Q6H PRN #30 tab.dis 11/05/17 [Rx] Scopolamine [Transderm-Scop] 1.5 mg TRDERM Q72H PRN #10 patch 11/05/17 [Rx] oxyCODONE 5 mg PO Q4HR PRN #20 tablet 11/05/17 [Rx] Past Medical History HEENT History: Reports: Cataract Other HEENT History: wears glasses Cardiovascular History: Reports: Heart Murmur Respiratory History: Reports: Sleep Apnea Other Respiratory History: states no problems, no CPAP Gastrointestinal History: Reports: Chronic Constipation, Chronic Diarrhea Other Gastrointestinal History: occasional diarrhea Genitourinary History: Reports: UTI, Recurrent [employer] History: Reports: Musculoskeletal History: Reports: Arthritis, Back Pain, Chronic, Fracture, Fibromyalgia Other Musculoskeletal History: hx of fx pelvis and left arm Neurological History: Reports: None Psychiatric History: Reports: Anxiety, Depression Endocrine/Metabolic History: Reports: None Hematologic History: Reports: None Immunologic History: Reports: None Oncologic (Cancer) History: Reports: None Dermatologic History: Reports: None - Past Surgical History HEENT Surgical History: Reports: Cataract Surgery GI Surgical History: Reports: Colonoscopy Female Surgical History: Reports: Section Musculoskeletal Surgical History: Social & Family History - Tobacco Use Smoking Status *Q: Never Smoker - Recreational Drug Use Recreational Drug Use: No Drug Use in Last 12 Months: No ED ROS GENERAL - Review of Systems Review Of Systems: ROS reveals no pertinent complaints other than HPI. ED EXAM, GI/ABD - Physical Exam Exam: See Below (See dictation) Course - Vital Signs Last Recorded V/S: Last Vital Signs Temp 98.3 F 11/07/17 16:28 Pulse 68 11/07/17 16:28 Resp 22 H 11/07/17 16:28 BP 152/51 H 11/07/17 16:28 Pulse Ox 100 11/07/17 16:28 - Orders/Labs/Meds Orders: Active Orders 24 hr Category Date Time Status EKG 12 Lead [EKG Documentation Completion] [RC] STAT Care 11/07/17 16:27 Active Abdomen Pelvis w Cont [CT] Stat Exams 11/07/17 16:27 Taken Chest 2V [CR] Stat Exams 11/07/17 16:27 Taken CULTURE URINE [RM] Stat Lab 11/07/17 18:37 Ordered Labs: Laboratory Tests 11/07/17 11/07/17 11/07/17 Range/Units 16:35 16:43 16:43 WBC 8.37 (4.0-11.0) K/uL RBC 3.92 L (4.30-5.90) M/uL Hgb 13.1 (12.0-16.0) g/dL Hct 38.6 (36.0-46.0) % MCV 98.5 H (80.0-98.0) fL MCH 33.4 H (27.0-32.0) pg MCHC 33.9 (31.0-37.0) g/dL RDW Std Deviation 47.3 (28.0-62.0) fl RDW Coeff of Jennifer 13 (11.0-15.0) % Plt Count 141 L (150-400) K/uL MPV 9.90 (7.40-12.00) fL Neut % (Auto) 74.8 (48.0-80.0) % Lymph % (Auto) 17.8 (16.0-40.0) % [place] % (Auto) 6.7 (0.0-15.0) % Eos % (Auto) 0.6 (0.0-7.0) % Baso % (Auto) 0.1 (0.0-1.5) % Neut # (Auto) 6.3 H (1.4-5.7) K/uL Lymph # (Auto) 1.5 (0.6-2.4) K/uL [place] # (Auto) 0.6 (0.0-0.8) K/uL Eos # (Auto) 0.1 (0.0-0.7) K/uL Baso # (Auto) 0.0 (0.0-0.1) K/uL Nucleated RBC % 0.0 /100WBC Nucleated RBCs # 0 K/uL Sodium 142 (136-146) mmol/L Potassium 3.9 (3.5-5.1) mmol/L Chloride 105 (98-110) mmol/L Carbon Dioxide 25 (21-31) mmol/L BUN 13 (6.0-23.0) mg/dL Creatinine 0.8 (0.6-1.5) mg/dL Est Cr Clr Drug Dosing 44.99 mL/min Estimated GFR (MDRD) > 60.0 ml/min Glucose 92 (60-110) mg/dL Calcium 9.0 (8.8-10.8) mg/dL Total Bilirubin 0.9 (0.1-1.5) mg/dL AST 28 (5-40) IU/L ALT 20 (8-54) IU/L Alkaline Phosphatase 72 (40-150) Troponin I < 0.10 (0.0-0.29) NG/ML Total Protein 5.8 L (6.0-8.0) g/dL Albumin 3.9 (3.4-4.8) g/dL Globulin 1.9 L (2.0-3.5) g/dL Albumin/Globulin Ratio 2.1 (1.3-2.8) Urine Color YELLOW Urine Appearance SLT CLOUDY Urine pH 6.5 (5.0-8.0) Ur Specific [place] 1.010 (1.001-1.035) Urine Protein NEGATIVE (NEGATIVE) mg/dL Urine Glucose (UA) NEGATIVE (NEGATIVE) mg/dL Urine Ketones NEGATIVE (NEGATIVE) mg/dL Urine Occult Blood NEGATIVE (NEGATIVE) Urine Nitrite NEGATIVE (NEGATIVE) Urine Bilirubin NEGATIVE (NEGATIVE) Urine Urobilinogen 0.2 (<2.0) EU/dL Ur Leukocyte Esterase SMALL (NEGATIVE) Urine RBC 0-2 (0-2/HPF) Urine WBC 2-4 (0-5/HPF) Ur Epithelial Cells OCCASIONAL (NONE-FEW) Ur Renal Epithelial Cell RARE Urine Bacteria FEW (NEGATIVE) Meds: Medications Discontinued Medications Generic Name Dose Route Start Last Admin Trade Name Freq PRN Reason Stop Dose Admin Sodium Chloride 1,000 mls @ 999 mls/hr 11/07/17 16:32 11/07/17 16:42 Normal Saline IV 11/07/17 17:32 999 mls/hr STAT ONE Administration Iopamidol 60 ml 11/07/17 18:13 11/07/17 18:14 Isovue-370 (76%) IVPUSH 11/07/17 18:14 60 ml ONETIME STA Administration Ketorolac Tromethamine 30 mg 11/07/17 16:32 11/07/17 16:43 Toradol IVPUSH 11/07/17 16:33 30 mg ONETIME ONE Administration Nitrofurantoin Macrocrystals 200 mg 11/07/17 18:44 Macrobid PO 11/07/17 18:45 ONETIME ONE Ondansetron HCl 4 mg 11/07/17 16:32 11/07/17 16:43 Zofran IVPUSH 11/07/17 16:33 4 mg ONETIME ONE Administration Departure - Departure Time of Disposition: 18:43 Disposition: Home, Self-Care 01 Clinical Impression: Post-operative pain UTI (urinary tract infection) Qualifiers: Urinary tract infection type: acute cystitis Hematuria presence: without hematuria Qualified Code(s): N30.00 - Acute cystitis without hematuria Abdominal pain Qualifiers: Abdominal location: generalized Qualified Code(s): R10.84 - Generalized abdominal pain - Discharge Information Referrals: PCP,None [Primary Care Provider] - Forms: ED Department Discharge Additional Instructions: My general discharge The following information is given to patients seen in the emergency department who are being discharged to home. This information is to outline your options for follow-up care. We provide all patients seen in our emergency department with a follow-up referral. The need for follow-up, as well as the timing and circumstances, are variable depending upon the specifics of your emergency department visit. If you don't have a primary care physician on staff, we will provide you with a referral. We always advise you to contact your personal physician following an emergency department visit to inform them of the circumstance of the visit and for follow-up with them and/or the need for any referrals to a consulting specialist. The emergency department will also refer you to a specialist when appropriate. This referral assures that you have the opportunity for follow-up care with a specialist. All of these measure are taken in an effort to provide you with optimal care, which includes your follow-up. Under all circumstances we always encourage you to contact your private physician who remains a resource for coordinating your care. When calling for follow-up care, please make the office aware that this follow-up is from your recent emergency room visit. If for any reason you are refused follow-up, please contact the [facility] Emergency Department at and asked to speak to the emergency department charge nurse. [facility] Specialty Care - General Surgery Professional Building [address] [place] [address], [address] [place] [address] 1. Please take the antibiotic as prescribed. A urine culture has been added. 2. Please take your prescribed pain medication as directed. Increase your fluids to prevent hydration/constipation. 3. Follow up with Dr. Vee for your post surgical evaluation. Return to the ED as needed and as discussed. - My Orders Last 24 Hours: My Active Orders 11/07/17 16:27 EKG 12 Lead [EKG Documentation Completion] [RC] STAT Abdomen Pelvis w Cont [CT] Stat Chest 2V [CR] Stat 11/07/17 18:37 CULTURE URINE [RM] Stat - Assessment/Plan Last 24 Hours: My Active Orders 11/07/17 16:27 EKG 12 Lead [EKG Documentation Completion] [RC] STAT Abdomen Pelvis w Cont [CT] Stat Chest 2V [CR] Stat 11/07/17 18:37 CULTURE URINE [RM] Stat
[2017-11-07 17:25] LABS: CHLORIDE,CL 105 mmol/L (98-110); SODIUM,NA 142 mmol/L (136-146)
[2017-11-07] MEDS ORDERED: Iopamidol 755 Mg/ML 100 ML Bottle IVPUSH STA (18:13)
[2017-11-07] MEDS ORDERED: Nitrofurantoin Monohydrate/Macrocrystalline 100 MG Cap PO ONE (18:44)
[2017-11-07 19:18] VITALS: BP 131/45
--- NOTE | 2017-11-08 16:34 | CR ---
EXAM DATE: 11/07/17 PATIENT'S AGE: 72 Patient: BERENICE BRIDGES Facility: [place], [place] Site . Site : 1945 Study: XRay Chest [id number]/28/2018 5:59:55 PM Ordering Physician: Doctor Sanchez Final Report: INDICATIONS: Chest pain. Abdominal pain. TECHNIQUE: Chest 2 view. COMPARISON: Chest radiograph September 07, 2017. FINDINGS: No pneumothorax, pleural effusion or airspace consolidation. Mild bilateral prominence of the pulmonary interstitium is unchanged. Cardiac and mediastinal contours are within normal limits. Upper abdomen and osseous structures show no acute abnormality. Bone demineralization and degenerative changes. IMPRESSION: No evidence of acute cardiopulmonary disease. Dictated by Moncho Ramos MD @ 11/07/2017 6:07:30 PM Dictated by: Moncho Ramos MD @ 11/07/2017 18:07:34 (Electronic Signature) Report Signed by Proxy. ADALBERTO
--- NOTE | 2017-11-08 16:35 | CT ---
EXAM DATE: 11/07/17 PATIENT'S AGE: 72 Patient: BERENICE BRIDGES Facility: [place], [place] Site . Site : 1945 Study: CT Abdomen/Pelvis W CONT [id number]/28/2018 6:16:39 PM Ordering Physician: Doctor Sanchez Final Report: INDICATION: Back and abdominal pain. TECHNIQUE: CT of abdomen and pelvis performed after IV injection of 60 mL of IV contrast. FINDINGS: Moderate osteopenia. Numerous calcified splenic granulomas. Degenerative disc disease L5 interspace with mild disc bulging. Moderate vascular calcifications. Moderate amounts of free and extraluminal air in the anterior abdomen likely related to recent surgery. This finding was called to the referring physician who confirmed recent cholecystectomy. Moderate edematous and inflammatory stranding in the right greater than left anterior lateral abdominal wall extending into the anterior pelvic wall. Moderate amounts of air within the right anterior abdominal wall also consistent with recent surgery. Stranding in the periumbilical region consistent with recent surgery. Atelectasis and scarring in the lung bases greatest in the right lung base. Some of the atelectasis and scarring is platelike. Tiny nodule right lower lobe. Calcified granulomas in the right lower lobe. Small right pleural effusion. Trace amount of pleural fluid in the left posteromedial inferior chest. Small amount of fluid and stranding in the gallbladder fossa consistent with recent cholecystectomy. Small cyst right hepatic lobe. Moderate dilatation of the renal pelves bilaterally. Common bile duct is mildly prominent. Pancreatic duct in the lower pancreatic head is mildly prominent. Normal variant left-sided IVC. Air bubbles within the anterior urinary bladder likely related to recent procedure or catheterization. Colonic diverticulosis. Remainder negative. IMPRESSION: 1. Postoperative changes consistent with recent cholecystectomy with fluid and stranding which is small in amount in the gallbladder fossa as well as free intraperitoneal air and postoperative and edematous changes in the abdominal wall. 2. Small right pleural effusion with right basilar opacity of uncertain etiology. 3. Air bubbles in the anterior urinary bladder likely related to recent catheterization or procedure. 4. Trace amount of fluid in the left lower pleural space medially. 5. The common bile duct is mildly dilated without a definitive stone within it. Other findings as above. Please note that all CT scans at this facility use dose modulation, iterative reconstruction, and/or weight-based dosing when appropriate to reduce radiation dose to as low as reasonably achievable. Dictated by David Klilian MD @ Nov 07 2017 6:34PM (Electronic Signature) Report Signed by Proxy. MTDD
== END 2017-11-07 19:05 | disposition home or self-care (01) ==
LOC: MW.ED 16:25
DX: R10.9 Unspecified abdominal pain (principal); G89.18 Other acute postprocedural pain; N30.00 Acute cystitis without hematuria; Z88.6 Allergy status to analgesic agent; Z88.5 Allergy status to narcotic agent; Z90.49 Acquired absence of other specified parts of digestive tract
CPT/HCPCS: 36415; 71046; 74177; 80053; 81001; 84484; 85025; 87086; 93005; 96361; 96374; 96375; 99285; A9270; J1885; J2405; J7040; Q9967; 87088; 87186

== ENCOUNTER 2019-01-08 22:20 | Observation (INO) | payer MEDICARE, OTHER ==
[2019-01-08] MEDS ORDERED: Sodium Chloride 0.9% 10 ML Syringe FLUSH PRN (22:26)
[2019-01-08] MEDS ORDERED: Sodium Chloride 0.9% 2.5 ML Syringe FLUSH PRN (22:26)
--- NOTE | 2019-01-08 22:27 | EDM.PDOC ---
ED HPI GENERAL MEDICAL PROBLEM - General Stated Complaint: PT HAS COUGH Time Seen by Provider: 01/08/19 22:25 - History of Present Illness INITIAL COMMENTS - FREE TEXT/NARRATIVE: HISTORY AND PHYSICAL: History of present illness: Patient is 73-year-old white female presents concern of cough and shortness of breath or last several days she denies influenza immunization this been no fever no chills no chest pain she denies history of known lung disease she states she was told years ago she had a cardiac murmur but is never had heart failure heart attack stroke or any other cardiac or pulmonary problems Review of systems: As per history of present illness and below otherwise all systems reviewed and negative. Past medical history: As per history of present illness and as reviewed below otherwise noncontributory. Surgical history: As per history of present illness and as reviewed below otherwise noncontributory. Social history: No reported history of drug or alcohol abuse. Family history: As per history of present illness and as reviewed below otherwise noncontributory. Physical exam: HEENT: Atraumatic, normocephalic, pupils reactive, negative for conjunctival pallor or scleral icterus, mucous membranes moist, throat clear, neck supple, nontender, trachea midline. Lungs: Clear to auscultation, breath sounds equal bilaterally, chest nontender. Heart: S1S2, regular, negative for clicks, rubs, or JVD. Abdomen: Soft, nondistended, nontender. Negative for masses or hepatosplenomegaly. Negative for costovertebral tenderness. Pelvis: Stable nontender. Genitourinary: Deferred. Rectal: Deferred. Extremities: Atraumatic, negative for cords or calf pain. Neurovascular unremarkable. Neuro: Awake, alert, oriented. Cranial nerves II through XII unremarkable. Cerebellum unremarkable. Motor and sensory unremarkable throughout. Exam nonfocal. Diagnostics: CBC CMP troponin PT/INR BNP chest x-ray EKG influenza screen Therapeutics: IV O2 monitor Impression: #1 dyspnea #2 cough Definitive disposition and diagnosis as appropriate pending reevaluation and review of above. - Related Data Allergies Allergy/AdvReac Type Severity Reaction Status Date / Time acetaminophen [From Tylenol] Allergy Other Verified 01/08/19 22:26 codeine Allergy visual Verified 01/08/19 22:26 disturbances diazepam [From Valium] Allergy Drowsiness Verified 01/08/19 22:26 Home Meds: Home Meds . [No Known Home Meds] 01/08/19 [History] Past Medical History HEENT History: Reports: Cataract Other HEENT History: wears glasses Cardiovascular History: Reports: Heart Murmur Respiratory History: Reports: Sleep Apnea Other Respiratory History: states no problems, no CPAP Gastrointestinal History: Reports: Chronic Constipation, Chronic Diarrhea Other Gastrointestinal History: occasional diarrhea Genitourinary History: Reports: UTI, Recurrent [employer] History: Reports: Musculoskeletal History: Reports: Arthritis, Back Pain, Chronic, Fracture, Fibromyalgia Other Musculoskeletal History: hx of fx pelvis and left arm Neurological History: Reports: None Psychiatric History: Reports: Anxiety, Depression Endocrine/Metabolic History: Reports: None Hematologic History: Reports: None Immunologic History: Reports: None Oncologic (Cancer) History: Reports: None Dermatologic History: Reports: None - Past Surgical History HEENT Surgical History: Reports: Cataract Surgery GI Surgical History: Reports: Colonoscopy Female Surgical History: Reports: Section Musculoskeletal Surgical History: Social & Family History - Family History Family Medical History: Noncontributory - Caffeine Use Caffeine Use: Reports: None ED ROS GENERAL - Review of Systems Review Of Systems: ROS reveals no pertinent complaints other than HPI. ED EXAM, GENERAL - Physical Exam Exam: See Below (See dictation) Course - Vital Signs Last Recorded V/S: Last Vital Signs Temp 36.9 C 01/08/19 22:56 Pulse 69 01/08/19 23:54 Resp 18 01/08/19 23:54 BP 146/56 H 01/08/19 23:54 Pulse Ox 95 01/08/19 23:54 - Orders/Labs/Meds Orders: Active Orders 24 hr Category Date Time Status EKG Documentation Completion [RC] STAT Care 01/08/19 22:26 Active CULTURE URINE [RM] Stat Lab 01/08/19 22:40 Received Sodium Chloride 0.9% [Saline Flush] Med 01/08/19 22:26 Active 10 ml FLUSH ASDIRECTED PRN Sodium Chloride 0.9% [Saline Flush] Med 01/08/19 22:26 Active 2.5 ml FLUSH ASDIRECTED PRN Saline Lock Insert [OM.PC] Stat Oth 01/08/19 22:26 Ordered Medication Orders Sodium Chloride (Saline Flush) 10 ml FLUSH ASDIRECTED PRN PRN Reason: Keep Vein Open Sodium Chloride (Saline Flush) 2.5 ml FLUSH ASDIRECTED PRN PRN Reason: Keep Vein Open Labs: Laboratory Tests 01/08/19 01/08/19 01/08/19 Range/Units 22:40 22:40 22:40 WBC 3.10 L (4.0-11.0) K/uL RBC 3.66 L (4.30-5.90) M/uL Hgb 11.9 L (12.0-16.0) g/dL Hct 36.3 (36.0-46.0) % MCV 99.2 H (80.0-98.0) fL MCH 32.5 H (27.0-32.0) pg MCHC 32.8 (31.0-37.0) g/dL RDW Std Deviation 49.0 (28.0-62.0) fl RDW Coeff of Jennifer 14 (11.0-15.0) % Plt Count 127 L (150-400) K/uL MPV 9.40 (7.40-12.00) fL Neut % (Auto) 48.1 (48.0-80.0) % Lymph % (Auto) 39.0 (16.0-40.0) % [place] % (Auto) 11.0 (0.0-15.0) % Eos % (Auto) 1.6 (0.0-7.0) % Baso % (Auto) 0.3 (0.0-1.5) % Neut # (Auto) 1.5 (1.4-5.7) K/uL Lymph # (Auto) 1.2 (0.6-2.4) K/uL [place] # (Auto) 0.3 (0.0-0.8) K/uL Eos # (Auto) 0.1 (0.0-0.7) K/uL Baso # (Auto) 0.0 (0.0-0.1) K/uL Nucleated RBC % 0.0 /100WBC Nucleated RBCs # 0 K/uL INR 0.99 Sodium 140 (136-145) mmol/L Potassium 4.5 (3.5-5.1) mmol/L Chloride 103 (98-107) mmol/L Carbon Dioxide 27.4 (21.0-32.0) mmol/L BUN 15 (7.0-18.0) mg/dL Creatinine 0.8 (0.6-1.0) mg/dL Est Cr Clr Drug Dosing 44.18 mL/min Estimated GFR (MDRD) > 60.0 ml/min Glucose 100 (74-106) mg/dL Calcium 8.4 L (8.5-10.1) mg/dL Total Bilirubin 0.2 (0.2-1.0) mg/dL AST 20 (15-37) IU/L ALT 18 (14-63) IU/L Alkaline Phosphatase 78 (46-116) U/L Troponin I < 0.050 (0.000-0.056) ng/mL B-Natriuretic Peptide (<100) PG/ML Total Protein 6.0 L (6.4-8.2) g/dL Albumin 3.2 L (3.4-5.0) g/dL Globulin 2.8 (2.6-4.0) g/dL Albumin/Globulin Ratio 1.1 (0.9-1.6) Urine Color Urine Appearance Urine pH (5.0-8.0) Ur Specific [place] (1.001-1.035) Urine Protein (NEGATIVE) mg/dL Urine Glucose (UA) (NEGATIVE) mg/dL Urine Ketones (NEGATIVE) mg/dL Urine Occult Blood (NEGATIVE) Urine Nitrite (NEGATIVE) Urine Bilirubin (NEGATIVE) Urine Urobilinogen (<2.0) EU/dL Ur Leukocyte Esterase (NEGATIVE) Urine RBC (0-2/HPF) Urine WBC (0-5/HPF) Ur Epithelial Cells (NONE-FEW) Urine Bacteria (NEGATIVE) 01/08/19 01/08/19 Range/Units 22:40 22:40 WBC (4.0-11.0) K/uL RBC (4.30-5.90) M/uL Hgb (12.0-16.0) g/dL Hct (36.0-46.0) % MCV (80.0-98.0) fL MCH (27.0-32.0) pg MCHC (31.0-37.0) g/dL RDW Std Deviation (28.0-62.0) fl RDW Coeff of Jennifer (11.0-15.0) % Plt Count (150-400) K/uL MPV (7.40-12.00) fL Neut % (Auto) (48.0-80.0) % Lymph % (Auto) (16.0-40.0) % [place] % (Auto) (0.0-15.0) % Eos % (Auto) (0.0-7.0) % Baso % (Auto) (0.0-1.5) % Neut # (Auto) (1.4-5.7) K/uL Lymph # (Auto) (0.6-2.4) K/uL [place] # (Auto) (0.0-0.8) K/uL Eos # (Auto) (0.0-0.7) K/uL Baso # (Auto) (0.0-0.1) K/uL Nucleated RBC % /100WBC Nucleated RBCs # K/uL INR Sodium (136-145) mmol/L Potassium (3.5-5.1) mmol/L Chloride (98-107) mmol/L Carbon Dioxide (21.0-32.0) mmol/L BUN (7.0-18.0) mg/dL Creatinine (0.6-1.0) mg/dL Est Cr Clr Drug Dosing mL/min Estimated GFR (MDRD) ml/min Glucose (74-106) mg/dL Calcium (8.5-10.1) mg/dL Total Bilirubin (0.2-1.0) mg/dL AST (15-37) IU/L ALT (14-63) IU/L Alkaline Phosphatase (46-116) U/L Troponin I (0.000-0.056) ng/mL B-Natriuretic Peptide 29 (<100) PG/ML Total Protein (6.4-8.2) g/dL Albumin (3.4-5.0) g/dL Globulin (2.6-4.0) g/dL Albumin/Globulin Ratio (0.9-1.6) Urine Color YELLOW Urine Appearance SLT CLOUDY Urine pH 7.0 (5.0-8.0) Ur Specific [place] 1.010 (1.001-1.035) Urine Protein NEGATIVE (NEGATIVE) mg/dL Urine Glucose (UA) NEGATIVE (NEGATIVE) mg/dL Urine Ketones NEGATIVE (NEGATIVE) mg/dL Urine Occult Blood SMALL H (NEGATIVE) Urine Nitrite POSITIVE H (NEGATIVE) Urine Bilirubin NEGATIVE (NEGATIVE) Urine Urobilinogen 0.2 (<2.0) EU/dL Ur Leukocyte Esterase MODERATE H (NEGATIVE) Urine RBC 1-3 (0-2/HPF) Urine WBC 20-25 (0-5/HPF) Ur Epithelial Cells FEW (NONE-FEW) Urine Bacteria 2+ H (NEGATIVE) Meds: Medications Generic Name Dose Route Start Last Admin Trade Name Frebrittany PRN Reason Stop Dose Admin Sodium Chloride 10 ml 01/08/19 22:26 Saline Flush FLUSH ASDIRECTED PRN Keep Vein Open Sodium Chloride 2.5 ml 01/08/19 22:26 Saline Flush FLUSH ASDIRECTED PRN Keep Vein Open Discontinued Medications Generic Name Dose Route Start Last Admin Trade Name Freq PRN Reason Stop Dose Admin Ceftriaxone Sodium/Dextrose 1 50 mls @ 100 mls/hr 01/08/19 23:30 01/08/19 23: 39 gm/ Premix IV 01/08/19 23:59 100 mls/hr ONETIME ONE Administration Departure - Departure Time of Disposition: 00:29 Disposition: Home, Self-Care 01 Condition: Good Clinical Impression: Dyspnea UTI (urinary tract infection) Qualifiers: Urinary tract infection type: acute cystitis Hematuria presence: without hematuria Qualified Code(s): N30.00 - Acute cystitis without hematuria - Discharge Information - My Orders Last 24 Hours: My Active Orders 01/08/19 22:26 EKG Documentation Completion [RC] STAT Sodium Chloride 0.9% [Saline Flush] 10 ml FLUSH ASDIRECTED PRN Sodium Chloride 0.9% [Saline Flush] 2.5 ml FLUSH ASDIRECTED PRN Saline Lock Insert [OM.PC] Stat 01/08/19 22:40 CULTURE URINE [RM] Stat - Assessment/Plan Last 24 Hours: My Active Orders 01/08/19 22:26 EKG Documentation Completion [RC] STAT Sodium Chloride 0.9% [Saline Flush] 10 ml FLUSH ASDIRECTED PRN Sodium Chloride 0.9% [Saline Flush] 2.5 ml FLUSH ASDIRECTED PRN Saline Lock Insert [OM.PC] Stat 01/08/19 22:40 CULTURE URINE [RM] Stat
[2019-01-08 23:21] LABS: CHLORIDE,CL 103 mmol/L (98-107); SODIUM,NA 140 mmol/L (136-145)
[2019-01-08] MEDS ORDERED: cefTRIAXone 1 GM in Premix Bag 1 BAG IV ONE (23:30)
--- NOTE | 2019-01-08 23:54 | CR ---
Indication: Shortness of breath Technique: Chest 1 view Comparison: None Findings/Impression: Cardiovascular and mediastinum: Heart size and vasculature are normal in caliber and appearance. Mediastinum is within normal limits. Lungs and pleural space: There are some foci of calcification overlying the right lower lobe which may represent pleural calcification. No focal infiltrate. No sign of pleural effusion. No pneumothorax. Bones and soft tissues: No significant findings. Dictated by Radha Greenberg MD @ Jan 08 2019 11:52PM Signed by Dr. Radha Greenberg @ Jan 08 2019 11:53PM
[2019-01-09] MEDS ORDERED: oxyCODONE 5 MG Tab PO PRN (01:53)
[2019-01-09] MEDS ORDERED: Enoxaparin 40 MG/0.4 ML Syringe SUBCUT SCH ×2 (06:00→08:00)
[2019-01-09] MEDS ORDERED: Ondansetron 4 MG Tab.DIS PO PRN (06:15)
[2019-01-09] MEDS ORDERED: Albuterol 0.083% 2.5 MG/3 ML Neb Soln NEB PRN (06:15)
--- NOTE | 2019-01-09 06:24 | PCM.HP ---
H&P History of Present Illness - General Date of Service: 01/09/19 Admit Problem/Dx: Admission Diagnosis/Problem Admission Diagnosis/Problem subjective dyspnea, incidental urinary tract infection, fatigue Source of Information: Patient History Limitations: Reports: No Limitations - History of Present Illness Initial Comments - Free Text/Narative: The patient is a 73-year-old lady who had presented to the emergency department with a chief complaint of shortness of breath. The patient says that she has had this feeling for approximately 3 days. She hasn't been around any sick contacts. Patient reports that she has coughing spells and she seems to get dizzy and lightheaded after coughing. The patient also says that she has not been coughing up any sputum. The patient has denied any fever or chills. She does have some chest pain midsternal near her ribs that is aggravated when she coughs. The patient has been very anxious about caring for her who has Parkinson's disease. She also has denied any nausea or vomiting. She does not take any medications chronically and she does not smoke. Onset of Symptoms: Reports: Gradual Duration of Symptoms: Reports: Day(s):, Getting Worse Location: Reports: Chest Quality: Reports: Ache Severity: Mild Improves with: Reports: Rest Worsens with: Reports: Other (Coughing) Context: Denies: Sick Contact Associated Symptoms: Reports: Cough. Denies: Fever/Chills, Headaches chest tightness Pain Score (Numeric/FACES): 2 - Related Data Allergies/Adverse Reactions: Allergies Allergy/AdvReac Type Severity Reaction Status Date / Time acetaminophen [From Tylenol] Allergy Other Verified 01/09/19 01:32 codeine Allergy visual Verified 01/09/19 01:32 disturbances diazepam [From Valium] Allergy Drowsiness Verified 01/09/19 01:32 Home Medications: Home Meds . [No Known Home Meds] 01/08/19 [History] Past Medical History HEENT History: Reports: Cataract Other HEENT History: wears glasses Cardiovascular History: Reports: Heart Murmur Respiratory History: Reports: Sleep Apnea Other Respiratory History: states no problems, no CPAP Gastrointestinal History: Reports: Chronic Constipation, Chronic Diarrhea Other Gastrointestinal History: occasional diarrhea Genitourinary History: Reports: UTI, Recurrent [employer] History: Reports: Musculoskeletal History: Reports: Arthritis, Back Pain, Chronic, Fracture, Fibromyalgia Other Musculoskeletal History: hx of fx pelvis and left arm Neurological History: Reports: None Psychiatric History: Reports: Anxiety, Depression Endocrine/Metabolic History: Reports: None Hematologic History: Reports: None Immunologic History: Reports: None Oncologic (Cancer) History: Reports: None Dermatologic History: Reports: None - Infectious Disease History Infectious Disease History: Reports: None - Past Surgical History Head Surgeries/Procedures: Reports: None HEENT Surgical History: Reports: Cataract Surgery GI Surgical History: Reports: Cholecystectomy, Colonoscopy Female Surgical History: Reports: Section Social & Family History - Family History Family Medical History: Noncontributory - Tobacco Use Smoking Status *Q: Never Smoker - Caffeine Use Caffeine Use: Reports: Tea - Recreational Drug Use Recreational Drug Use: No - Living Situation & Occupation Living situation: Reports: , with Significant Other Occupation: Retired H&P Review of Systems - Review of Systems: Review Of Systems: See Below General: Reports: Weakness, Fatigue HEENT: Reports: No Symptoms Pulmonary: Reports: Shortness of Breath, Pleuritic Chest Pain, Cough. Denies: Sputum Cardiovascular: Reports: No Symptoms Gastrointestinal: Reports: No Symptoms Genitourinary: Reports: No Symptoms Musculoskeletal: Reports: No Symptoms Skin: Reports: No Symptoms Psychiatric: Reports: No Symptoms Neurological: Reports: No Symptoms Hematologic/Lymphatic: Reports: No Symptoms Immunologic: Reports: No Symptoms Exam - Exam Exam: See Below - Vital Signs Vital Signs: Last Vital Signs Temp 36.2 C 01/09/19 05:28 Pulse 65 01/09/19 05:28 Resp 18 01/09/19 05:28 BP 153/60 H 01/09/19 05:28 Pulse Ox 96 01/09/19 05:28 Weight: 44.5 kg - Exam Quality Assessment: No: Supplemental Oxygen General: Alert, Oriented, Cooperative, Mild Distress HEENT: Conjunctiva Clear, EACs Clear, EOMI, Hearing Intact, Nares Patent, PERRLA. No: Mucosa Moist & [place] (Dry) Neck: Supple, Trachea Midline Lungs: Clear to Auscultation, Normal Respiratory Effort Cardiovascular: Regular Rate, Regular Rhythm GI/Abdominal Exam: Normal Bowel Sounds, Soft, Non-Tender, No Distention (Female) Exam: Deferred Rectal (Female) Exam: Deferred Back Exam: Normal Inspection, Full Range of Motion Extremities: Normal Inspection, Normal Range of Motion, No Pedal Edema Skin: Warm, Dry, Intact Neurological: Cranial Nerves Intact Neuro Extensive - Mental Status: Alert, Oriented x3 Psychiatric: Alert, Normal Affect, Normal Mood - Patient Data Lab Results Last 24 hrs: Laboratory Results - last 24 hr 01/08/19 01/08/19 01/08/19 Range/Units 22:40 22:40 22:40 WBC 3.10 L (4.0-11.0) K/uL RBC 3.66 L (4.30-5.90) M/uL Hgb 11.9 L (12.0-16.0) g/dL Hct 36.3 (36.0-46.0) % MCV 99.2 H (80.0-98.0) fL MCH 32.5 H (27.0-32.0) pg MCHC 32.8 (31.0-37.0) g/dL RDW Std Deviation 49.0 (28.0-62.0) fl RDW Coeff of Jennifer 14 (11.0-15.0) % Plt Count 127 L (150-400) K/uL MPV 9.40 (7.40-12.00) fL Neut % (Auto) 48.1 (48.0-80.0) % Lymph % (Auto) 39.0 (16.0-40.0) % [place] % (Auto) 11.0 (0.0-15.0) % Eos % (Auto) 1.6 (0.0-7.0) % Baso % (Auto) 0.3 (0.0-1.5) % Neut # (Auto) 1.5 (1.4-5.7) K/uL Lymph # (Auto) 1.2 (0.6-2.4) K/uL [place] # (Auto) 0.3 (0.0-0.8) K/uL Eos # (Auto) 0.1 (0.0-0.7) K/uL Baso # (Auto) 0.0 (0.0-0.1) K/uL Nucleated RBC % 0.0 /100WBC Nucleated RBCs # 0 K/uL INR 0.99 Sodium 140 (136-145) mmol/L Potassium 4.5 (3.5-5.1) mmol/L Chloride 103 (98-107) mmol/L Carbon Dioxide 27.4 (21.0-32.0) mmol/L BUN 15 (7.0-18.0) mg/dL Creatinine 0.8 (0.6-1.0) mg/dL Est Cr Clr Drug Dosing 44.18 mL/min Estimated GFR (MDRD) > 60.0 ml/min Glucose 100 (74-106) mg/dL Calcium 8.4 L (8.5-10.1) mg/dL Total Bilirubin 0.2 (0.2-1.0) mg/dL AST 20 (15-37) IU/L ALT 18 (14-63) IU/L Alkaline Phosphatase 78 (46-116) U/L Troponin I < 0.050 (0.000-0.056) ng/mL B-Natriuretic Peptide (<100) PG/ML Total Protein 6.0 L (6.4-8.2) g/dL Albumin 3.2 L (3.4-5.0) g/dL Globulin 2.8 (2.6-4.0) g/dL Albumin/Globulin Ratio 1.1 (0.9-1.6) Urine Color Urine Appearance Urine pH (5.0-8.0) Ur Specific [place] (1.001-1.035) Urine Protein (NEGATIVE) mg/dL Urine Glucose (UA) (NEGATIVE) mg/dL Urine Ketones (NEGATIVE) mg/dL Urine Occult Blood (NEGATIVE) Urine Nitrite (NEGATIVE) Urine Bilirubin (NEGATIVE) Urine Urobilinogen (<2.0) EU/dL Ur Leukocyte Esterase (NEGATIVE) Urine RBC (0-2/HPF) Urine WBC (0-5/HPF) Ur Epithelial Cells (NONE-FEW) Urine Bacteria (NEGATIVE) 01/08/19 01/08/19 Range/Units 22:40 22:40 WBC (4.0-11.0) K/uL RBC (4.30-5.90) M/uL Hgb (12.0-16.0) g/dL Hct (36.0-46.0) % MCV (80.0-98.0) fL MCH (27.0-32.0) pg MCHC (31.0-37.0) g/dL RDW Std Deviation (28.0-62.0) fl RDW Coeff of Jennifer (11.0-15.0) % Plt Count (150-400) K/uL MPV (7.40-12.00) fL Neut % (Auto) (48.0-80.0) % Lymph % (Auto) (16.0-40.0) % [place] % (Auto) (0.0-15.0) % Eos % (Auto) (0.0-7.0) % Baso % (Auto) (0.0-1.5) % Neut # (Auto) (1.4-5.7) K/uL Lymph # (Auto) (0.6-2.4) K/uL [place] # (Auto) (0.0-0.8) K/uL Eos # (Auto) (0.0-0.7) K/uL Baso # (Auto) (0.0-0.1) K/uL Nucleated RBC % /100WBC Nucleated RBCs # K/uL INR Sodium (136-145) mmol/L Potassium (3.5-5.1) mmol/L Chloride (98-107) mmol/L Carbon Dioxide (21.0-32.0) mmol/L BUN (7.0-18.0) mg/dL Creatinine (0.6-1.0) mg/dL Est Cr Clr Drug Dosing mL/min Estimated GFR (MDRD) ml/min Glucose (74-106) mg/dL Calcium (8.5-10.1) mg/dL Total Bilirubin (0.2-1.0) mg/dL AST (15-37) IU/L ALT (14-63) IU/L Alkaline Phosphatase (46-116) U/L Troponin I (0.000-0.056) ng/mL B-Natriuretic Peptide 29 (<100) PG/ML Total Protein (6.4-8.2) g/dL Albumin (3.4-5.0) g/dL Globulin (2.6-4.0) g/dL Albumin/Globulin Ratio (0.9-1.6) Urine Color YELLOW Urine Appearance SLT CLOUDY Urine pH 7.0 (5.0-8.0) Ur Specific [place] 1.010 (1.001-1.035) Urine Protein NEGATIVE (NEGATIVE) mg/dL Urine Glucose (UA) NEGATIVE (NEGATIVE) mg/dL Urine Ketones NEGATIVE (NEGATIVE) mg/dL Urine Occult Blood SMALL H (NEGATIVE) Urine Nitrite POSITIVE H (NEGATIVE) Urine Bilirubin NEGATIVE (NEGATIVE) Urine Urobilinogen 0.2 (<2.0) EU/dL Ur Leukocyte Esterase MODERATE H (NEGATIVE) Urine RBC 1-3 (0-2/HPF) Urine WBC 20-25 (0-5/HPF) Ur Epithelial Cells FEW (NONE-FEW) Urine Bacteria 2+ H (NEGATIVE) Result Diagrams: 01/08/19 22:40 01/08/19 22:40 Jose Results Last 24 hrs: Microbiology 01/08/19 22:28 Influenza Type A Antigen Screen - Final Nasopharyngeal Swab NEGATIVE INFLUENZA A VIRUS AG Influenza Type B Antigen Screen - Final NEGATIVE INFLUENZA B VIRUS AG - Problem List (1) UTI (urinary tract infection) SNOMED Code(s): 44313707 ICD Code: N39.0 - URINARY TRACT INFECTION, SITE NOT SPECIFIED Status: Acute Priority: High Current Visit: Yes Qualifiers: Urinary tract infection type: acute cystitis Hematuria presence: without hematuria Qualified Code(s): N30.00 - Acute cystitis without hematuria (2) Dyspnea SNOMED Code(s): 994052071 ICD Code: R06.00 - DYSPNEA, UNSPECIFIED Status: Acute Priority: High Current Visit: Yes Qualifiers: Dyspnea type: dyspnea on exertion Qualified Code(s): R06.09 - Other forms of dyspnea (3) Pulmonary nodules/lesions, multiple SNOMED Code(s): 757884056 ICD Code: R91.8 - OTHER NONSPECIFIC ABNORMAL FINDING OF LUNG FIELD Status: Chronic Priority: Medium Current Visit: Yes (4) Weakness generalized SNOMED Code(s): 37095237 ICD Code: R53.1 - WEAKNESS Status: Chronic Priority: Medium Current Visit: Yes Problem List Initiated/Reviewed/Updated: Yes Orders Last 24hrs: Active Orders 24 hr Category Date Time Status Patient Status [ADT] Stat ADT 01/09/19 00:30 Active Oxygen Therapy [RC] ASDIRECTED Care 01/09/19 01:56 Active Oxygen Therapy [RC] PRN Care 01/09/19 06:15 Ordered RT Aerosol Therapy [RC] ASDIRECTED Care 01/09/19 06:18 Ordered Up ad Lashawn [RC] ASDIRECTED Care 01/09/19 06:15 Ordered VTE/DVT Education [RC] PER UNIT ROUTINE Care 01/09/19 06:15 Ordered Vital Signs [RC] Q4H Care 01/09/19 06:15 Ordered Regular Diet [DIET] Diet 01/09/19 Breakfast Active Chest w wo Cont [CT] Routine Exams 01/09/19 06:15 Ordered CULTURE URINE [RM] Stat Lab 01/08/19 22:40 Received Albuterol [Proventil Neb Soln] Med 01/09/19 06:15 Ordered 2.5 mg NEB Q2H PRN Enoxaparin [Lovenox] Med 01/09/19 06:15 Ordered 30 mg SUBCUT Q24H Ondansetron [Zofran ODT] Med 01/09/19 06:15 Ordered 4 mg PO Q6H PRN Sodium Chloride 0.9% [Saline Flush] Med 01/08/19 22:26 Active 10 ml FLUSH ASDIRECTED PRN Sodium Chloride 0.9% [Saline Flush] Med 01/08/19 22:26 Active 2.5 ml FLUSH ASDIRECTED PRN cefTRIAXone [Rocephin] 1 gm Med 01/09/19 23:00 Active Sodium Chloride 0.9% [Normal Saline] 50 ml IV Q24H oxyCODONE Med 01/09/19 01:53 Active 5 mg PO Q4H PRN Saline Lock Insert [OM.PC] Stat Oth 01/08/19 22:26 Ordered Resuscitation Status Routine Resus Stat 01/09/19 06:15 Ordered Medication Orders Albuterol (Proventil Neb Soln) 2.5 mg NEB Q2H PRN PRN Reason: Shortness Of Breath/wheezing Enoxaparin Sodium (Lovenox) 30 mg SUBCUT Q24H EVELIA Ceftriaxone Sodium 1 gm/ (Sodium Chloride) 50 mls @ 100 mls/hr IV Q24H EVELIA Ondansetron HCl (Zofran Odt) 4 mg PO Q6H PRN PRN Reason: nausea, able to take PO Oxycodone HCl (Oxycodone) 5 mg PO Q4H PRN PRN Reason: Pain Sodium Chloride (Saline Flush) 10 ml FLUSH ASDIRECTED PRN PRN Reason: Keep Vein Open Sodium Chloride (Saline Flush) 2.5 ml FLUSH ASDIRECTED PRN PRN Reason: Keep Vein Open Assessment/Plan Comment:: The patient is a 73-year-old lady who has been admitted to observation secondary to her subjective dyspnea. The patient's examination is essentially benign. I've ordered a CT scan of the patient's chest with and without contrast to help better characterize the nature of the calcified pulmonary nodules and a better view of her lung brennan. Calcified nodules are likely benign. Patient does have an incidental urinary tract infection and she will be kept on ceftriaxone for this. The patient says that she has been exerting herself and caring for her ill and she is concerned that this has worn her down. Physical therapy is also been ordered for the patient. The patient will also have regular diet as tolerated. She has been encouraged to ambulate. The patient will also be kept on Lovenox for DVT prophylaxis. The patient may be appropriate for discharge later today after her CT scan.
[2019-01-09] MEDS ORDERED: Enoxaparin 30 MG/0.3 ML Syringe SUBCUT SCH (08:00)
--- NOTE | 2019-01-09 10:57 | CT ---
EXAMINATION: CT chest with and without contrast HISTORY: Shortness of breath COMPARISON: Radiographs dated 01/08/2019 and 11/07/2014. TECHNIQUE: Axial CT imaging obtained through the chest before and following the administration of 60 mL of Isovue-370 in the left arm. Coronal and sagittal reconstructions obtained. FINDINGS: The lungs are clear without focal consolidation. No pleural effusion or pneumothorax. A calcified granuloma within the right lung base. There is a 4 mm nodule within the right lower lobe on image 59 of series 302. This is stable in comparison to a CT abdomen and pelvis dated 07/13/2017 and is likely benign. There are a few very tiny nodules within the right middle lobe. The heart is normal in size without pericardial effusion. The thoracic aorta is normal in caliber. Main and central pulmonary arteries are obtained. Mild carotid artery calcifications. Central airways are clear. No mediastinal, hilar or axillary lymphadenopathy. Splenic and hepatic granulomata are noted. Cholecystectomy with a small amount of fluid within the gallbladder fossa. IMPRESSION: 1. No acute cardiopulmonary findings. 2. There are a few very tiny pulmonary nodules noted, if the patient has known risk factors consider follow-up imaging in 12 months.
[2019-01-09 11:56] VITALS: BP 156/69
--- NOTE | 2019-01-09 13:55 | PCM.DCSUM1 ---
Discharge Summary - Hospital Course HPI Initial Comments: The patient was admitted secondary to shortness of breath and incidental urinary tract infection Diagnosis: Stroke: No - Discharge Data Discharge Date: 01/09/19 Discharge Disposition: Home, Self-Care 01 Condition: Good - Discharge Diagnosis/Problem(s) (1) UTI (urinary tract infection) SNOMED Code(s): 31014741 ICD Code: N39.0 - URINARY TRACT INFECTION, SITE NOT SPECIFIED Status: Acute Priority: High Current Visit: Yes Qualifiers: Urinary tract infection type: acute cystitis Hematuria presence: without hematuria Qualified Code(s): N30.00 - Acute cystitis without hematuria (2) Dyspnea SNOMED Code(s): 186662202 ICD Code: R06.00 - DYSPNEA, UNSPECIFIED Status: Resolved Priority: High Current Visit: Yes Qualifiers: Dyspnea type: dyspnea on exertion Qualified Code(s): R06.09 - Other forms of dyspnea (3) Pulmonary nodules/lesions, multiple SNOMED Code(s): 026043364 ICD Code: R91.8 - OTHER NONSPECIFIC ABNORMAL FINDING OF LUNG FIELD Status: Chronic Priority: Medium Current Visit: Yes (4) Weakness generalized SNOMED Code(s): 08123782 ICD Code: R53.1 - WEAKNESS Status: Chronic Priority: Medium Current Visit: Yes - Patient Summary/Data Consults: Consultations 01/09/19 06:52 Consult to Physical Therapy [PT Evaluation and Treatment] [CONS] Routine Hospital Course: The patient is a 73-year-old lady who had presented to the emergency department with a chief complaint of shortness of breath. The patient says that she has had this feeling for approximately 3 days. She hasn't been around any sick contacts. Patient reports that she has coughing spells and she seems to get dizzy and lightheaded after coughing. The patient also says that she has not been coughing up any sputum. The patient has denied any fever or chills. She does have some chest pain midsternal near her ribs that is aggravated when she coughs. The patient has been very anxious about caring for her who has Parkinson's disease. The patient also had been tolerating her diet. Due to the patient's subjective dyspnea CT scan was obtained on January 09, 2019. Radiologist read shows no acute cardiopulmonary findings and there was a few very tiny pulmonary nodules noted. Recommend follow-up in 12 months.She had been given a prescription for ciprofloxacin 500 mg by mouth twice a day for 5 days secondary to her incidental urinary tract infection. She had been tolerating her diet. She is recommended to continue with the diet as tolerated. She is also to have activity as tolerated. The patient has been hemodynamically stable and she feels like she can go home safely. The patient is discharged from acute hospitalization with recommendations listed above. - Patient Instructions Diet: Heart Healthy Diet Activity: As Tolerated Notify Provider of: Fever, Increased Pain - Discharge Plan *PRESCRIPTION DRUG MONITORING PROGRAM REVIEWED*: No *COPY OF PRESCRIPTION DRUG MONITORING REPORT IN PATIENT HUYEN: No Prescriptions/Med Rec: Ciprofloxacin HCl [Cipro] 500 mg PO BID #10 tablet Home Medications: Home Meds Ciprofloxacin HCl [Cipro] 500 mg PO BID #10 tablet 01/09/19 [Rx] Oxygen Therapy Mode: Room Air Patient Handouts: Shortness of Breath, Adult, [id number] Forms: ED Department Discharge Referrals: PCP,None [Primary Care Provider] - - Discharge Summary/Plan Comment DC Time >30 min.: Yes - General Info Date of Service: 01/09/19 Admission Dx/Problem (Free Text: Admission Diagnosis/Problem Admission Diagnosis/Problem subjective dyspnea, incidental urinary tract infection, fatigue Subjective Update: Much better today. His breathing better. Functional Status: Reports: Pain Controlled - Review of Systems General: Reports: No Symptoms HEENT: Reports: No Symptoms Pulmonary: Reports: No Symptoms Cardiovascular: Reports: No Symptoms Gastrointestinal: Reports: No Symptoms Genitourinary: Reports: No Symptoms Musculoskeletal: Reports: No Symptoms Skin: Reports: No Symptoms Neurological: Reports: No Symptoms Psychiatric: Reports: No Symptoms - Patient Data Vitals - Most Recent: Last Vital Signs Temp 36.6 C 01/09/19 11:55 Pulse 66 01/09/19 11:55 Resp 16 01/09/19 11:55 BP 156/69 H 01/09/19 11:55 Pulse Ox 98 01/09/19 11:55 Weight - Most Recent: 44.5 kg I&O - Last 24 hours: Intake & Output 01/08/19 01/09/19 01/09/19 22:59 06:59 14:59 Intake Total 360 Output Total 425 Balance -65 Lab Results - Last 24 hrs: Laboratory Results - last 24 hr 01/08/19 01/08/1901/08/19 Range/Units 22:40 22:40 22:40 WBC 3.10 L (4.0-11.0) K/uL RBC 3.66 L (4.30-5.90) M/uL Hgb 11.9 L (12.0-16.0) g/dL Hct 36.3 (36.0-46.0) % MCV 99.2 H (80.0-98.0) fL MCH 32.5 H (27.0-32.0) pg MCHC 32.8 (31.0-37.0) g/dL RDW Std Deviation 49.0 (28.0-62.0) fl RDW Coeff of Jennifer 14 (11.0-15.0) % Plt Count 127 L (150-400) K/uL MPV 9.40 (7.40-12.00) fL Neut % (Auto) 48.1 (48.0-80.0) % Lymph % (Auto) 39.0 (16.0-40.0) % [place] % (Auto) 11.0 (0.0-15.0) % Eos % (Auto) 1.6 (0.0-7.0) % Baso % (Auto) 0.3 (0.0-1.5) % Neut # (Auto) 1.5 (1.4-5.7) K/uL Lymph # (Auto) 1.2 (0.6-2.4) K/uL [place] # (Auto) 0.3 (0.0-0.8) K/uL Eos # (Auto) 0.1 (0.0-0.7) K/uL Baso # (Auto) 0.0 (0.0-0.1) K/uL Nucleated RBC % 0.0 /100WBC Nucleated RBCs # 0 K/uL INR 0.99 Sodium 140 (136-145) mmol/L Potassium 4.5 (3.5-5.1) mmol/L Chloride 103 (98-107) mmol/L Carbon Dioxide 27.4 (21.0-32.0) mmol/L BUN 15 (7.0-18.0) mg/dL Creatinine 0.8 (0.6-1.0) mg/dL Est Cr Clr Drug Dosing 44.18 mL/min Estimated GFR (MDRD) > 60.0 ml/min Glucose 100 (74-106) mg/dL Calcium 8.4 L (8.5-10.1) mg/dL Total Bilirubin 0.2 (0.2-1.0) mg/dL AST 20 (15-37) IU/L ALT 18 (14-63) IU/L Alkaline Phosphatase 78 (46-116) U/L Troponin I < 0.050 (0.000-0.056) ng/mL B-Natriuretic Peptide (<100) PG/ML Total Protein 6.0 L (6.4-8.2) g/dL Albumin 3.2 L (3.4-5.0) g/dL Globulin 2.8 (2.6-4.0) g/dL Albumin/Globulin Ratio 1.1 (0.9-1.6) Urine Color Urine Appearance Urine pH (5.0-8.0) Ur Specific [place] (1.001-1.035) Urine Protein (NEGATIVE) mg/dL Urine Glucose (UA) (NEGATIVE) mg/dL Urine Ketones (NEGATIVE) mg/dL Urine Occult Blood (NEGATIVE) Urine Nitrite (NEGATIVE) Urine Bilirubin (NEGATIVE) Urine Urobilinogen (<2.0) EU/dL Ur Leukocyte Esterase (NEGATIVE) Urine RBC (0-2/HPF) Urine WBC (0-5/HPF) Ur Epithelial Cells (NONE-FEW) Urine Bacteria (NEGATIVE) 01/08/19 01/08/19 Range/Units 22:40 22:40 WBC (4.0-11.0) K/uL RBC (4.30-5.90) M/uL Hgb (12.0-16.0) g/dL Hct (36.0-46.0) % MCV (80.0-98.0) fL MCH (27.0-32.0) pg MCHC (31.0-37.0) g/dL RDW Std Deviation (28.0-62.0) fl RDW Coeff of Jennifer (11.0-15.0) % Plt Count (150-400) K/uL MPV (7.40-12.00) fL Neut % (Auto) (48.0-80.0) % Lymph % (Auto) (16.0-40.0) % [place] % (Auto) (0.0-15.0) % Eos % (Auto) (0.0-7.0) % Baso % (Auto) (0.0-1.5) % Neut # (Auto) (1.4-5.7) K/uL Lymph # (Auto) (0.6-2.4) K/uL [place] # (Auto) (0.0-0.8) K/uL Eos # (Auto) (0.0-0.7) K/uL Baso # (Auto) (0.0-0.1) K/uL Nucleated RBC % /100WBC Nucleated RBCs # K/uL INR Sodium (136-145) mmol/L Potassium (3.5-5.1) mmol/L Chloride (98-107) mmol/L Carbon Dioxide (21.0-32.0) mmol/L BUN (7.0-18.0) mg/dL Creatinine (0.6-1.0) mg/dL Est Cr Clr Drug Dosing mL/min Estimated GFR (MDRD) ml/min Glucose (74-106) mg/dL Calcium (8.5-10.1) mg/dL Total Bilirubin (0.2-1.0) mg/dL AST (15-37) IU/L ALT (14-63) IU/L Alkaline Phosphatase (46-116) U/L Troponin I (0.000-0.056) ng/mL B-Natriuretic Peptide 29 (<100) PG/ML Total Protein (6.4-8.2) g/dL Albumin (3.4-5.0) g/dL Globulin (2.6-4.0) g/dL Albumin/Globulin Ratio (0.9-1.6) Urine Color YELLOW Urine Appearance SLT CLOUDY Urine pH 7.0 (5.0-8.0) Ur Specific [place] 1.010 (1.001-1.035) Urine Protein NEGATIVE (NEGATIVE) mg/dL Urine Glucose (UA) NEGATIVE (NEGATIVE) mg/dL Urine Ketones NEGATIVE (NEGATIVE) mg/dL Urine Occult Blood SMALL H (NEGATIVE) Urine Nitrite POSITIVE H (NEGATIVE) Urine Bilirubin NEGATIVE (NEGATIVE) Urine Urobilinogen 0.2 (<2.0) EU/dL Ur Leukocyte Esterase MODERATE H (NEGATIVE) Urine RBC 1-3 (0-2/HPF) Urine WBC 20-25 (0-5/HPF) Ur Epithelial Cells FEW (NONE-FEW) Urine Bacteria 2+ H (NEGATIVE) ETHEL Results - Last 24 hrs: Microbiology 01/08/19 22:28 Influenza Type A Antigen Screen - Final Nasopharyngeal Swab NEGATIVE INFLUENZA A VIRUS AG Influenza Type B Antigen Screen - Final NEGATIVE INFLUENZA B VIRUS AG Med Orders - Current: Current Medications Albuterol (Proventil Neb Soln) 2.5 mg NEB Q2H PRN PRN Reason: Shortness Of Breath/wheezing Enoxaparin Sodium (Lovenox) 30 mg SUBCUT Q24H [facility] Last Admin: 01/09/19 08:34 Dose: 30 mg Ceftriaxone Sodium/Dextrose 1 (gm/ Premix) 50 mls @ 100 mls/hr IV Q24H [facility] Ondansetron HCl (Zofran Odt) 4 mg PO Q6H PRN PRN Reason: nausea, able to take PO Oxycodone HCl (Oxycodone) 5 mg PO Q4H PRN PRN Reason: Pain Sodium Chloride (Saline Flush) 10 ml FLUSH ASDIRECTED PRN PRN Reason: Keep Vein Open Sodium Chloride (Saline Flush) 2.5 ml FLUSH ASDIRECTED PRN PRN Reason: Keep Vein Open Discontinued Medications Enoxaparin Sodium (Lovenox) 40 mg SUBCUT Q24H [facility] Last Admin: 01/09/19 06:57 Dose: Not Given Enoxaparin Sodium (Lovenox) 30 mg SUBCUT Q24H [facility] Ceftriaxone Sodium/Dextrose 1 (gm/ Premix) 50 mls @ 100 mls/hr IV ONETIME ONE Stop: 01/08/19 23:59 Last Admin: 01/08/19 23:39 Dose: 100 mls/hr - Exam Quality Assessment: Denies: Supplemental Oxygen General: Reports: Alert, Oriented, Cooperative, No Acute Distress HEENT: Reports: Pupils Equal, Pupils Reactive Neck: Reports: Supple, Trachea Midline Lungs: Reports: Clear to Auscultation, Normal Respiratory Effort Cardiovascular: Reports: Regular Rate, Regular Rhythm GI/Abdominal Exam: Normal Bowel Sounds, Soft, No Distention (Female) Exam: Deferred Rectal (Female) Exam: Deferred Back Exam: Reports: Normal Inspection, Full Range of Motion Extremities: Normal Inspection, Normal Range of Motion, No Pedal Edema Skin: Reports: Warm, Dry, Intact Neurological: Reports: No New Focal Deficit Psy/Mental Status: Reports: Alert, Normal Affect
[2019-01-09] MEDS ORDERED: cefTRIAXone 1 GM in Premix Bag 1 BAG IV SCH (23:00)
== END 2019-01-09 17:10 | disposition home or self-care (01) ==
LOC: MW.ED 22:20 → MW.MS 01-09 00:30
PROVIDERS: ADMIT Internal Medicine; ATTEND Internal Medicine
DX: R06.09 Other forms of dyspnea (principal); R91.8 Other nonspecific abnormal finding of lung field; N39.0 Urinary tract infection, site not specified; Z88.6 Allergy status to analgesic agent; Z88.5 Allergy status to narcotic agent; Z88.8 Allergy status to other drugs, medicaments and biological substances
CPT/HCPCS: 36415; 71045; 71270; 80053; 81001; 83880; 84484; 85025; 85610; 87086; 87088; 87186; 87804; 93005; 96365; 97161; 99285; J0696; J1650; 96372; G0378

== ENCOUNTER 2019-05-04 09:37 | Day surgery (SDC) | payer MEDICARE, OTHER ==
[~2019-05-04 09:37] MED LIST changes: +Lactated Ringers 1,000 ML IV SCH; +Lidocaine 2% 5 ML SDV ONE; +Propofol 200 MG/20 ML SDV ONE; +Sodium Chloride 0.9% 10 ML SDV IV PRN; -ceFAZolin 2 GM in Premix Bag 1 BAG IV ONE
--- NOTE | 2019-05-04 10:12 | PCM.PREANE ---
Preanesthetic Assessment - Anesthesia/Transfusion/Family Hx Anesthesia History: Prior Anesthesia Without Reaction Other Type of Anesthesia Reaction Comment: states unable to intubate for recent MRI- used LMA Family History of Anesthesia Reaction: No Transfusion History: Unknown Intubation History: History of Difficulty Intubation - Review of Systems General: No Symptoms Pulmonary: No Symptoms Cardiovascular: No Symptoms Neurological: No Symptoms Other: Reports: None - Physical Assessment NPO Status Date: 05/03/19 O2 Sat by Pulse Oximetry: 98 Respiratory Rate: 14 Vital Signs: Last Vital Signs Temp 97.7 F 05/04/19 10:06 Pulse 61 05/04/19 10:06 Resp 14 05/04/19 10:06 BP 174/73 H 05/04/19 10:06 Pulse Ox 98 05/04/19 10:06 Height: 5 ft Weight: 43.998 kg ASA Class: 3 Mental Status: Alert & Oriented x3 Airway Class: Mallampati = 3 Dentition: Reports: Broken Tooth/Teeth ROM/Head Extension: Full Lungs: Clear to Auscultation, Normal Respiratory Effort Cardiovascular: Regular Rate, Regular Rhythm - Allergies Allergies/Adverse Reactions: Allergies Allergy/AdvReac Type Severity Reaction Status Date / Time acetaminophen [From Tylenol] Allergy Cannot Verified 05/02/19 13:54 Remember codeine Allergy Confusion Verified 05/02/19 13:54 diazepam [From Valium] Allergy Drowsiness Verified 05/02/19 13:54 - Blood Blood Available: No - Anesthesia Plan Pre-Op Medication Ordered: None - Acknowledgements Anesthesia Type Planned: General Anesthesia Pt an Appropriate Candidate for the Planned Anesthesia: Yes Alternatives and Risks of Anesthesia Discussed w Pt/Guardian: Yes Pt/Guardian Understands and Agrees with Anesthesia Plan: Yes Additional Comments: anes prob list: thrombocytopenia-153K, neutropenia-3,900, 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, anx/dep , no recent use ventolin-denies asthma/copd, MAYKEL allergy to valium was sedation/confusion PLAN: tiva- without versed if possible PreAnesthesia Questionnaire HEENT History: Reports: Cataract Other HEENT History: wears glasses Cardiovascular History: Reports: Heart Murmur Respiratory History: Reports: Sleep Apnea Other Respiratory History: states no problems, no CPAP Gastrointestinal History: Reports: Chronic Constipation, Chronic Diarrhea Other Gastrointestinal History: occasional diarrhea Genitourinary History: Reports: UTI, Recurrent 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: Musculoskeletal History: Reports: Arthritis, Back Pain, Chronic, Fracture, Fibromyalgia Other Musculoskeletal History: hx of fx pelvis and left arm Neurological History: Reports: None Psychiatric History: Reports: Anxiety, Depression Endocrine/Metabolic History: Reports: None Hematologic History: Reports: None Immunologic History: Reports: None Oncologic (Cancer) History: Reports: None Dermatologic History: Reports: None - Infectious Disease History Infectious Disease History: Reports: None - SUBSTANCE USE Smoking Status *Q: Never Smoker Recreational Drug Use History: No - HOME MEDS Home Medications: Home Meds Cyanocobalamin (Vitamin B-12) [Cyanocobalamin Injection] 1 injection IM ASDIRECTED 05/02/19 [History] Whole Foot Supplements 1 dose PO DAILY 05/02/19 [History] - CURRENT (IN HOUSE) MEDS Current Meds: Current Medications Lactated Ringer's (Ringers, Lactated) 1,000 mls @ 125 mls/hr IV ASDIRECTED EVELIA Sodium Chloride (Saline Flush) 10 ml FLUSH ASDIRECTED PRN PRN Reason: Keep Vein Open Sodium Chloride (Saline Flush) 2.5 ml FLUSH ASDIRECTED PRN PRN Reason: Keep Vein Open Sodium Chloride (Normal Saline) 10 ml IV ASDIRECTED PRN PRN Reason: IV Use Discontinued Medications Lidocaine (Xylocaine-Mpf 2%) Confirm Administered Dose 5 ml .ROUTE .STK-MED ONE Stop: 05/04/19 08:31 Propofol (Diprivan 20 Ml) Confirm Administered Dose 400 mg .ROUTE .STK-MED ONE Stop: 05/04/19 08:31
[2019-05-04] MEDS ORDERED: Ondansetron 4 MG/2 ML SDV ONE (12:23)
[2019-05-04 13:06] VITALS: BP 131/70
--- NOTE | 2019-05-04 13:10 | PCM48HPAN ---
Post Anesthesia Note - EVALUATION WITHIN 48HRS OF ANESTHETIC Vital Signs in Normal Range: Yes Patient Participated in Evaluation: Yes Respiratory Function Stable: Yes Airway Patent: Yes Cardiovascular Function Stable: Yes Hydration Status Stable: Yes Pain Control Satisfactory: Yes Nausea and Vomiting Control Satisfactory: Yes Mental Status Recovered: Yes Resp Rate: 14
--- NOTE | 2019-05-04 13:55 | PCM.OPNOTE ---
- General Post-Op/Procedure Note Date of Surgery/Procedure: 05/04/19 Operative Procedure(s): Diagnostic EGD Findings: Mild chronic gastritis Pre Op Diagnosis: Anemia Post-Op Diagnosis: Mild chronic gastritis Anesthesia Technique: MAC Primary Surgeon: Marilyn Vee Condition: Good
--- NOTE | 2019-05-04 15:20 | OR ---
SURGEON: MARILYN VEE MD DATE OF PROCEDURE: 05/04/2019 PREOPERATIVE DIAGNOSIS: Anemia. POSTOPERATIVE DIAGNOSES: 1. Mild gastritis. 2. Hiatal hernia. OPERATIVE PROCEDURE: Diagnostic esophagogastroduodenoscopy with biopsies. PRIMARY SURGEON: Marilyn Vee MD. ANESTHESIA: MAC. INSTRUMENT USED: Olympus endoscope. EXTENT OF EXAM: To the second portion of duodenum. PREPARATION: Good. LIMITATIONS: None. INDICATIONS: The patient is a 74-year-old female with a mild anemia. 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 I explained the procedure; expected perioperative course; and risks including bleeding, infection, or perforation. The patient verbalized understanding and wishes to proceed. PROCEDURE IN DETAIL: The patient was brought to the OR and placed in a beach chair position. A time- out was completed verifying the patient's name, age, date of , allergies, and procedure to be performed. A bite block was placed in the patient's mouth. Monitored anesthesia care was induced and continuous oxygen was provided via nasal cannula throughout the procedure. After adequate sedation was achieved, a well-lubricated endoscope was placed in the patient's mouth and advanced under direct visualization to the level of the second portion of the duodenum. This appeared normal and a photograph was taken. The scope was then straightened out and fully withdrawn while examining the color, texture, anatomy, and integrity of the mucosa of the upper GI tract. The duodenum was normal. The scope was brought into the stomach and a photograph was taken of the pylorus as well as the GE junction. The patient appeared to have a very small hiatal hernia. Biopsies were taken of the gastric antrum, body, and fundus and sent for histologic review and H. pylori testing. The patient appeared to have some mild chronic gastritis in the antrum. The scope was brought into the distal esophagus and a photograph was taken of the very small hiatal hernia. The distal esophageal mucosa appeared normal. The remainder of the esophagus was normal as well. Scope was removed and the procedure terminated. The patient tolerated the procedure well and was taken to the PACU in stable condition. ENDOSCOPIC DIAGNOSES: 1. Mild gastritis. 2. Hiatal hernia. RECOMMENDATIONS: Follow up in clinic in 2 weeks. CHRIS / EDUARDO /[id number]
== END 2019-05-04 13:24 | disposition home or self-care (01) ==
LOC: MW.SDS 09:37
PROVIDERS: ATTEND Surgery
DX: K29.70 Gastritis, unspecified, without bleeding (principal); K44.9 Diaphragmatic hernia without obstruction or gangrene; F41.9 Anxiety disorder, unspecified; F32.9 Major depressive disorder, single episode, unspecified; M81.0 Age-related osteoporosis without current pathological fracture; M06.9 Rheumatoid arthritis, unspecified; D69.6 Thrombocytopenia, unspecified; N39.0 Urinary tract infection, site not specified; E53.8 Deficiency of other specified B group vitamins; Z88.5 Allergy status to narcotic agent; Z88.6 Allergy status to analgesic agent; Z88.8 Allergy status to other drugs, medicaments and biological substances; Z79.899 Other long term (current) drug therapy
CPT/HCPCS: 43239; J2001; J2405; J2704; J7120

== ENCOUNTER 2021-12-10 13:06 | Emergency (ER) | payer MEDICARE, OTHER ==
[2021-12-10 13:21] VITALS: PULSE 71
[2021-12-10] MEDS ORDERED: Sodium Chloride 0.9% 10 ML Syringe FLUSH PRN (13:25)
[2021-12-10] MEDS ORDERED: Ondansetron 4 MG/2 ML SDV IVPUSH ONE (13:25)
[2021-12-10] MEDS ORDERED: Ketorolac 30 MG/ML SDV IVPUSH ONE (13:25)
[2021-12-10] MEDS ORDERED: Sodium Chloride 0.9% 1,000 ML IV ONE (13:25)
[2021-12-10] MEDS ORDERED: Sodium Chloride 0.9% 2.5 ML Syringe FLUSH PRN (13:25)
[2021-12-10 15:22] LABS: BLOOD UREA NITROGEN,BUN 16 mg/dL (7.0-18.0); CHLORIDE,CL 106 mmol/L (98-107); GLUCOSE RANDOM 86 mg/dL (74-106); LIPASE 53 U/L (73-393); SODIUM,NA 144 mmol/L (136-145)
[2021-12-10] MEDS ORDERED: Iopamidol 755 MG/ML 500 ML Multipack Bottle IVPUSH STA (16:06)
[2021-12-10 17:24] VITALS: BP 177/69
== END 2021-12-10 17:24 | disposition home or self-care (01) ==
LOC: MW.ED 13:06
DX: N30.00 Acute cystitis without hematuria (principal); K52.9 Noninfective gastroenteritis and colitis, unspecified; Z88.5 Allergy status to narcotic agent; Z88.8 Allergy status to other drugs, medicaments and biological substances
CPT/HCPCS: 36415; 74177; 80053; 81001; 83605; 83690; 84484; 85025; 93005; 96374; 96375; 99284; J1885; J2405; J7030; Q9967

== ENCOUNTER 2022-12-20 10:53 | Emergency (ER) | payer MEDICARE, OTHER, BC ==
[2022-12-20] MEDS ORDERED: Ibuprofen 600 MG Tab PO STA (11:19)
[2022-12-20 12:33] VITALS: BP 156/109
[2022-12-20 13:23] VITALS: PULSE 63
== END 2022-12-20 13:42 | disposition home or self-care (01) ==
LOC: MW.ED 10:53
DX: S52.692A Other fracture of lower end of left ulna, initial encounter for closed fracture (principal); Z88.5 Allergy status to narcotic agent; Z88.8 Allergy status to other drugs, medicaments and biological substances; W17.89XA Other fall from one level to another, initial encounter; Y92.009 Unspecified place in unspecified non-institutional (private) residence as the place of occurrence of the external cause
CPT/HCPCS: 73000; 73030; 73060; 73110; 73130; 99283; A9270; 99284

== ENCOUNTER 2023-09-12 16:26 | Emergency (ER) | payer MEDICARE, BC ==
[2023-09-12] MEDS ORDERED: Sodium Chloride 0.9% 1,000 ML IV STA ×2 (17:17→18:32)
[2023-09-12 17:26] LABS: APPEARANCE,URINE CLEAR; BILIRUBIN,URINE NEGATIVE (NEGATIVE); COLOR,URINE YELLOW; GLUCOSE,URINE NEGATIVE (NEGATIVE); KETONES,URINE NEGATIVE (NEGATIVE); LEUKOCYTE ESTERASE,URINE NEGATIVE (NEGATIVE); NITRITE,URINE NEGATIVE (NEGATIVE); OCCULT BLOOD,URINE NEGATIVE (NEGATIVE); PH,URINE 6.5 (5.0-8.0); PROTEIN,URINE NEGATIVE (NEGATIVE); UROBILINOGEN,URINE 0.2 EU/dL (<2.0)
[2023-09-12 17:48] LABS: BASOPHILS ABSOLUTE AUTO 0.01 K/uL (0.00-0.20); BASOPHILS PERCENT AUTO 0.2 % (0.0-1.0); EOSINOPHILS ABSOLUTE AUTO 0.09 K/uL (0.00-0.45); EOSINOPHILS PERCENT AUTO 1.9 % (0.0-6.0); HEMATOCRIT 36.2 % (37.0-47.0); HEMOGLOBIN 12.3 g/dL (12.0-16.0); IMMATURE GRAN ABSOLUTE AUTO 0.01 K/uL (0.00-0.05); IMMATURE GRAN PERCENT AUTO 0.2 % (0.0-0.4); LYMPHOCYTES PERCENT AUTO 25.9 % (24.0-44.0); MEAN CORPUSCULAR HEMOGLOBIN 33.5 pg (28.0-32.0); MEAN CORPUSCULAR VOLUME 98.6 fL (83.0-99.0); MEAN PLATELET VOLUME 9.2 fL (9.4-12.3); MONOCYTES ABSOLUTE AUTO 0.38 K/uL (0.00-0.80); MONOCYTES PERCENT AUTO 8.2 % (0.0-8.0); NEUTROPHILS ABSOLUTE AUTO 2.94 K/uL (1.80-7.70); NEUTROPHILS PERCENT AUTO 63.6 % (41.0-71.0); PLATELET COUNT,PLT 239 K/uL (150-400); RED BLOOD CELL COUNT 3.67 M/uL (4.10-5.30); WHITE BLOOD CELL COUNT,WBC 4.63 K/uL (3.9-11.3)
[2023-09-12 18:15] LABS: ALBUMIN 3.4 g/dL (3.4-5.0); BILIRUBIN TOTAL 0.3 mg/dL (0.2-1.0); CARBON DIOXIDE,CO2 30.9 mmol/L (21.0-32.0); CREATININE 1.2 mg/dL (0.6-1.0); EST CRCL DRUG DOSING (CG) 25.93 mL/min; POTASSIUM,K 4.2 mmol/L (3.5-5.1); PROTEIN TOTAL,TP 6.9 g/dL (6.4-8.2)
[2023-09-12] MEDS ORDERED: Ketorolac 30 MG/ML SDV IVPUSH STA (18:33)
[2023-09-12] MEDS ORDERED: Iopamidol 755 MG/ML 500 ML Multipack Bottle IVPUSH STA (18:53)
[2023-09-12 20:42] VITALS: BP 118/61; PULSE 79
== END 2023-09-12 20:41 | disposition home or self-care (01) ==
LOC: MW.ED 16:26
DX: R10.32 Left lower quadrant pain (principal); Z88.5 Allergy status to narcotic agent; Z88.8 Allergy status to other drugs, medicaments and biological substances
CPT/HCPCS: 36415; 74177; 80053; 81003; 83690; 83735; 85025; 96361; 96374; 99284; J1885; J7030; Q9967